=== PATIENT | male | born 1970 | race African-American/Black ===

== ENCOUNTER → 2016-06-03 | Outpatient (CLI) | payer MEDICARE, MEDICAID ==
[~2016-06-03] MED LIST: ALPR-557 PO; BACL10TA PO; BUTA1TAB46 PO; CARI350T PO; CEPH-507 PO; CETI10TA17; CLOT15CR5 TP; CYCL10TA9 PO; DIAZ5TAB3 PO; DICY20TA10 PO; DICY20TA57 PO; DIVA125T2 PO; DIVA250T4 PO; DULO20CA PO; FAMO-119 PO; HYDR RC; HYDR-1231 PO; HYDR-34 PO; HYDR-3720 PO; HYDR-3729 PO; HYDR118S10 PO; HYDR1CAP2 PO; HYOS0.1216 PO; LIDO15CR6 TP; METH4TAB PO; MONT10TA24; MSL400TEC PO; NAPR-243 PO; ONDA-42 SL; ONDA4TAB8 SL; OXYC-109 PO; OXYC-471 PO; OXYC1CAP3 PO; PRM25T PO; PROPANALOL PO; QUET300T2 PO; SLF500T PO; SULF1TAB38 PO; TAPE50TA PO; TPR100T PO; VALP250C3 PO; VERA240C2 PO; VERA240T98 PO
--- OUTSIDE RECORDS SUMMARY | 2016-06-03 10:56 | XMS REPORT | Continuity of Care Document ---
Author Author [facility] Organization [facility] Address Unknown Phone Unavailable Care Team Providers Care Wool Grader Name Role Phone Self, Referral PCP Unavailable Source Comments Some departments are not documenting in the electronic medical record. If you do not see the information that you expected, contact Release of Information in the Health Information Management department at [phone] for further assistance in locating additional records.[facility] Active Allergies and Adverse Reactions Allergen Noted Date Severity Reactions Comments Nsaids (Non-Steroidal 06/17/2011 HEADACHE, SEIZURES Anti-Inflammatory Drug) Toradol 06/17/2011 HEADACHE, SEIZURES Tramadol 06/17/2011 HEADACHE, SEIZURES Current Medications Prescription Sig. Disp. Refills Start End Date Status Date HYDROcodone/acetaminophen Take 1 Tab by mouth every Active (+) (LORTAB) 7.5/500 mg 4 hours as needed. tablet TOPIRAMATE (TOPAMAX PO) Take 100 mg by mouth Active twice daily. vitamins, multiple cap Take 1 Cap by mouth Active daily. Active Problems Problem Noted Date DNS (deviated nasal septum) 09/17/2012 Overview: Left obstructing 85% left nasal airway Nasal turbinate hypertrophy 08/02/2012 Cluster headache 06/25/2012 Overview: Several per day with left sided facial autonomic symptoms. L ast Assessment & Plan: Follow with Teresita Richardson for chronic headaches. CASSANDRA (obstructive sleep apnea) 06/24/2012 Overview: PSG AHI 23 (lateral AHI 15), Lsat 90% PLMI 10. CPAP 10 cm H20 resolved CASSANDRA. Symptomatic with apneic spells, EDS, cluster COATS. L ast Assessment & Plan: I discussed pathophysiology of CASSANDRA and its potential contribution to the patient's symptoms. He reports significant rhinitis and the rhinitis worsens when he has his cluster COATS (typical for this type of COATS). I referred him to ENT to see if there are any surgical approaches that may improve nasal patency and/or if he is an appropriate candidate for upper airway surgery for CASSANDRA. In the meantime, he responded superbly to CPAP on the PSG and said he felt great the next morning. He is getting CPAP set up today for a trial. I hope his headaches improve in frequency and severity, and that his sleep quality and EDS improve. Rhinitis 06/24/2012 Last Assessment & Plan: Refer to Dr. Tripp of ENT to see if there are surgical options for this patient's nasal congestion and possibly for CASSANDRA. 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
[2016-06-03 11:25] LABS: BASOPHILS % (AUTO) 0 % (0-10); EOSINOPHILS % (AUTO) 1 % (0-10); LYMPHOCYTES # (AUTO) 2.2 X 10^3 (1.0-4.0); LYMPHOCYTES % (AUTO) 51 % (12-44); MEAN CORPUSCULAR HEMOGLOBIN 30 PG (25-34); MEAN CORPUSCULAR HGB CONC 33 G/DL (32-36); MEAN CORPUSCULAR VOLUME 89 FL (80-99); MEAN PLATELET VOLUME 8.5 FL (7.4-10.4); MONOCYTES # (AUTO) 0.3 X 10^3 (0.0-1.0); MONOCYTES % (AUTO) 6 % (0-12); NEUTROPHILS # (AUTO) 1.7 X 10^3 (1.8-7.8); NEUTROPHILS % (AUTO) 42 % (42-75); PLATELET COUNT 331 10^3/uL (130-400); RED BLOOD COUNT 4.64 10^6/uL (4.35-5.85); RED CELL DISTRIBUTION WIDTH 13.5 % (10.0-14.5); WHITE BLOOD COUNT 4.2 10^3/uL (4.3-11.0)
[2016-06-03 11:45] LABS: ANION GAP 8 MMOL/L (5-14); BLOOD UREA NITROGEN 9 MG/DL (7-18); BUN/CREATININE RATIO 8; CARBON DIOXIDE 24 MMOL/L (21-32); CHLORIDE 106 MMOL/L (98-107); CREATININE SERUM 1.19 MG/DL (0.60-1.30); GFR ESTIMATED > 60; GLUCOSE 86 MG/DL (70-105); POTASSIUM 4.1 MMOL/L (3.6-5.0); SODIUM 138 MMOL/L (135-145)
[2016-06-04 00:03] LABS: CALCIUM IONIZED 1.26 mmol/L (1.16-1.32); CORRECTED IONIZED CALCIUM 1.22 mmol/L (1.16-1.32)
[2016-06-04 07:56] LABS: CALCIUM PH 7.34
== END ==
LOC: LAB 10:53
PROVIDERS: ATTEND Internal Medicine Critical Care Medicine
DX: C18.9 Malignant neoplasm of colon, unspecified (principal); R06.00 Dyspnea, unspecified; R05 Cough; G44.009 Cluster headache syndrome, unspecified, not intractable
CPT/HCPCS: 36415; 80048; 82164; 82330; 85025

== ENCOUNTER 2016-06-19 09:28 | Emergency (ER) | payer MEDICARE, MEDICAID ==
[~2016-06-19] VITALS: Ht 175.3 cm; Wt 68.5 kg
[~2016-06-19 09:28] MED LIST changes: -CETI10TA17; -CLOT15CR5 TP; -MONT10TA24
--- OUTSIDE RECORDS SUMMARY | 2016-06-19 09:36 | XMS REPORT | Continuity of Care Document ---
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
[2016-06-19] MEDS ORDERED: MONT10TA24 (09:52)
[2016-06-19] MEDS ORDERED: CETI10TA17 (09:52)
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
[2016-06-19] MEDS ORDERED: CLOT15CR5 TP (12:22)
[2016-06-19 12:23] VITALS: BP 116/70
--- NOTE | 2016-06-19 12:25 | Diagnostic Imaging Report ---
Three views of the right foot. INDICATION: Right foot pain. FINDINGS: There is no fracture, dislocation or radiopaque foreign body. Joint alignment is satisfactory. IMPRESSION: Unremarkable exam. Dictated by: Dictated on workstation # [id number]
== END 2016-06-19 12:25 | disposition home or self-care (01) ==
LOC: EDUNIT# 09:28 → ER 09:32
DX: B35.3 Tinea pedis (principal); I10 Essential (primary) hypertension; F17.210 Nicotine dependence, cigarettes, uncomplicated; Z85.07 Personal history of malignant neoplasm of pancreas
CPT/HCPCS: 73630; 99283

== ENCOUNTER → 2016-08-28 | Outpatient (CLI) | payer MEDICARE, MEDICAID ==
[~2016-08-28] MED LIST changes: +CETI10TA17; +CLOT15CR5 TP; +MONT10TA24
--- NOTE | 2016-08-28 15:19 | Diagnostic Imaging Report ---
Three views of the cervical spine. INDICATION: Fall. FINDINGS: There is straightening of the cervical spine. The vertebral body heights are preserved. There is mild disc height loss at C7-T1. There is anterior osteophyte formation at C5-C6. No significant posterior osteophytes are evident. There is suboptimal open-mouth odontoid view with no obvious abnormality. The prevertebral soft tissues appear unremarkable. IMPRESSION: Mild degenerative changes. Dictated by: Dictated on workstation # [id number]
== END ==
LOC: RAD 09:32
PROVIDERS: ATTEND Family Medicine
DX: M54.2 Cervicalgia (principal); W19.XXXA Unspecified fall, initial encounter; Y99.8 Other external cause status
CPT/HCPCS: 72040

== ENCOUNTER 2016-09-01 11:18 | Emergency (ER) | payer MEDICARE, MEDICAID ==
[~2016-09-01] VITALS: Ht 175.3 cm; Wt 69.4 kg
--- NOTE | 2016-09-01 12:57 | Diagnostic Imaging Report ---
Three views of the right foot. INDICATION: Right foot pain. FINDINGS: There is no fracture, dislocation, or radiopaque foreign body. Joint alignment is satisfactory. IMPRESSION: Unremarkable exam. Dictated by: Dictated on workstation # [id number]
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
[2016-09-01] MEDS ORDERED: oxyCODONE/APAP 5/325MG (PERCOCET 5) TABLET PO STA (13:23)
[2016-09-01 13:38] VITALS: BP 107/82
== END 2016-09-01 13:37 | disposition home or self-care (01) ==
LOC: EDUNIT# 11:18 → ER 11:20
DX: S93.601A Unspecified sprain of right foot, initial encounter (principal); S96.901A Unspecified injury of unspecified muscle and tendon at ankle and foot level, right foot, initial encounter; G40.909 Epilepsy, unspecified, not intractable, without status epilepticus; F17.210 Nicotine dependence, cigarettes, uncomplicated; Z85.038 Personal history of other malignant neoplasm of large intestine; X50.9XXA Other and unspecified overexertion or strenuous movements or postures, initial encounter; Y93.61 Activity, american tackle football; Y99.8 Other external cause status
CPT/HCPCS: 73630; 99285

== ENCOUNTER 2016-11-27 21:03 | Emergency (ER) | payer MEDICARE, MEDICAID ==
[~2016-11-27] VITALS: Ht 175.3 cm; Wt 68.0 kg
[2016-11-27] MEDS ORDERED: ORPHENADRINE 60 MG/2 ML (NORFLEX) AMP IM ONE (22:00)
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
[2016-11-27 22:55] VITALS: BP 121/85
[2016-11-27] MEDS ORDERED: HYDROcodone/APAP 5 MG/325 MG (LORTAB) TAB PO ONE (23:00)
--- NOTE | 2016-11-28 06:53 | Diagnostic Imaging Report ---
PROCEDURE: CT abdomen and pelvis without contrast. TECHNIQUE: Multiple contiguous axial images were obtained through the abdomen and pelvis without the use of intravenous contrast. INDICATION: Left-sided flank pain x2 days. COMPARISON: 03/12/2016. FINDINGS: Included views of the lung bases are clear. CT ABDOMEN: Moderate air and stool is noted scattered throughout the colon. Small bowel loops are nondistended. Patient appears to be status post partial right hemicolectomy. Appendix is therefore likely surgically absent. No renal or ureter calculi are seen on either side. Additionally, there is no hydronephrosis or other evidence of obstruction. No focal renal mass type lesions are identified on this noncontrast exam. The spleen, pancreas, adrenal glands, and liver have an unremarkable noncontrast CT appearance as well. There is no loculated fluid collection, free fluid, nor free air within the abdomen. No abnormal mesenteric or retroperitoneal adenopathy is seen. There is mild calcified aortic and arterial atherosclerosis. Bony structures show no acute abnormality. CT PELVIS: Urinary bladder is unopacified. No calculi are seen within a bladder. There is no loculated fluid collection, free fluid, nor free air. Bony structures show no acute abnormalities. IMPRESSION: 1. Moderate colonic air and stool. Please correlate for constipation. 2. No renal calculi or evidence of obstruction on either side. Dictated by: Dictated on workstation # [id number]
--- OUTSIDE RECORDS SUMMARY | 2016-12-04 04:22 | XMS REPORT | Clinical Summary ---
Author Author [facility] Organization [facility] Address Unknown Phone Unavailable Care Team Providers Care Bench Worker Name Role Phone PCP Unavailable Source Comments Some departments are not documenting in the electronic medical record. If you do not see the information that you expected, contact Release of Information in the Health Information Management department at [phone] for further assistance in locating additional records.[facility] Allergies Active Allergy Reactions Severity Noted Date Comments Nsaids (Non-Steroidal HEADACHE, SEIZURES 06/17/2011 Anti-Inflammatory Drug) Ketorolac Tromethamine HEADACHE, SEIZURES 06/17/2011 Tramadol HEADACHE, SEIZURES 06/17/2011 Current Medications Prescription Sig. Disp. Refills Start [...] CASSANDRA. Allergic rhinitis 06/26/2011 Food allergy 06/26/2011 Family History Relation Name Status Comments Brother Alive Brother Alive Brother Alive Brother Alive Daughter Alive Father Alive Maternal Grandfather Maternal Grandmother Mother Alive Paternal Grandfather Paternal Grandmother Alive Sister Alive Son Alive Son Alive Social History Tobacco Use Types Packs/Day Years Used Date Current Every Day Smoker Cigarettes 0.5 Smokeless Tobacco: Never Used Tobacco Cessation: Ready to Quit: Yes; Counseling Given: Yes Comments: Counseling given 5.9.13 Alcohol Use Drinks/Week oz/Week Comments Yes 1 Cans of 0.6 beer Sex Assigned at Date Recorded Not on file Last Filed Vital Signs Vital Sign Reading Time Taken Blood Pressure 125/82 10/05/2012 10:00 AM CDT Pulse 73 10/05/2012 10:00 AM CDT Temperature 36.8 C (98.2 F) 06/24/2012 8:52 AM 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
--- OUTSIDE RECORDS SUMMARY | 2016-12-04 04:25 | XMS REPORT | Continuity of Care Document ---
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 KNEE-CUR 11/27/2016 ADRIANNA SAUER MD Ot E000.8 OTHER EXTERNAL CAUSE STATUS 11/27/2016 ADRIANNA SAUER MD Ot E928.9 ACCIDENT NOS 11/27/2016 ADRIANNA SAUER MD Ot V72.84 EXAM PRE-OPERATIVE NOS 11/27/2016 PAUL GUAN DO Ot R05 COUGH 11/27/2016 PAUL GUAN DO Ot S69.91XA UNSP INJURY OF RIGHT WRIST, HAND AND FIN 11/27/2016 PAUL GUAN DO Ot S79.911A UNSPECIFIED INJURY OF RIGHT HIP, INITIAL 11/27/2016 PAUL GUAN DO Ot W19.XXXA UNSPECIFIED FALL, INITIAL ENCOUNTER 11/27/2016 PAUL GUAN DO Ot Y92.[address] IN UNSP NON-INSTITUT ( PRIVATE 11/27/2016 PAUL GUAN DO Ot Y99.8 OTHER EXTERNAL CAUSE STATUS 11/27/2016 PAUL GUAN DO Ot M25.551 PAIN IN RIGHT HIP 11/27/2016 ROGE GILLPAUL Ot M54.9 DORSALGIA, UNSPECIFIED 11/27/2016 IRIS WAGNER DO Ot C18.9 MALIGNANT NEOPLASM OF COLON, UNSPECIFIED 11/27/2016 IRIS WAGNER DO Ot 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, UNSPECIFIED, 11/27/2016 IRIS WAGNER DO Ot R05 COUGH 11/27/2016 IRIS WAGNER DO Ot R06.00 DYSPNEA, UNSPECIFIED 11/27/2016 LINDAKRISTOPHERADAMSPAUL Ot M54.2 CERVICALGIA 11/27/2016 LINDAKRISTOPHERADAMSPAUL Ot W19.XXXA UNSPECIFIED FALL, INITIAL ENCOUNTER 11/27/2016 ROGE PAUL Ot Y99.8 OTHER EXTERNAL CAUSE STATUS 11/29/2016 INOCENCIA COSTELLO APRN Ot F17.210 NICOTINE DEPENDENCE, CIGARETTES, UNCOMPL 11/29/2016 INOCENCIA COSTELLO APRN Ot G47.33 OBSTRUCTIVE SLEEP APNEA (ADULT) (PEDIATR 11/29/2016 INOCENCIA COSTELLO APRN Ot M54.5 LOW BACK PAIN 11/29/2016 INOCENCIA COSTELLO APRN Ot Z85.07 PERSONAL HISTORY OF MALIGNANT NEOPLASM O 11/29/2016 INOCENCIA COSTELLO APRN Ot Z90.49 ACQUIRED ABSENCE OF OTHER SPECIFIED PART 11/29/2016 INOCENCIA COSTELLO APRN Ot Z98.890 OTHER SPECIFIED POSTPROCEDURAL STATES Procedures Results Encounters ACCT No. Visit Date/Time Discharge Status Pt. Type Provider Facility Loc./Unit Complaint [id number] 07/06/2009 00:00:00 07/06/2009 23: 59:59 CLS Outpatient ARNOLD DE JESUS DO
== END 2016-11-27 22:55 | disposition home or self-care (01) ==
LOC: EDUNIT# 21:03 → ER 21:05
DX: M54.5 Low back pain (principal); G47.33 Obstructive sleep apnea (adult) (pediatric); F17.210 Nicotine dependence, cigarettes, uncomplicated; Z90.49 Acquired absence of other specified parts of digestive tract; Z85.07 Personal history of malignant neoplasm of pancreas; Z98.890 Other specified postprocedural states
CPT/HCPCS: 74176; 96372; 99284

== ENCOUNTER → 2017-03-09 | Outpatient (CLI) | payer MEDICARE, MEDICAID | LOC: LAB 09:39 | PROVIDERS: ATTEND Internal Medicine Gastroenterology | DX: R97.0 Elevated carcinoembryonic antigen [CEA] (principal); Z85.038 Personal history of other malignant neoplasm of large intestine | CPT/HCPCS: 36415; 82378 ==

== ENCOUNTER → 2017-08-03 | Outpatient (CLI) | payer MEDICARE, MEDICAID ==
[2017-08-03 16:30] LABS: HEMOGLOBIN 13.2 G/DL (13.3-17.7); MEAN PLATELET VOLUME 8.7 FL (7.4-10.4); RED BLOOD COUNT 4.42 10^6/uL (4.35-5.85); RED CELL DISTRIBUTION WIDTH 12.9 % (10.0-14.5); WHITE BLOOD COUNT 4.8 10^3/uL (4.3-11.0)
== END ==
LOC: LAB 16:04
PROVIDERS: ATTEND Family Medicine
DX: C18.9 Malignant neoplasm of colon, unspecified (principal); K92.1 Melena
CPT/HCPCS: 36415; 82378; 85027

== ENCOUNTER 2017-08-13 06:09 | Outpatient (CLI) | payer MEDICARE, MEDICAID ==
[~2017-08-13] VITALS: Ht 175.3 cm; Wt 66.2 kg
[2017-08-13] MEDS ORDERED: ALPR1TAB7 PO (15:45)
[2017-08-13] MEDS ORDERED: DIVA-21 PO (15:45)
[2017-08-13] MEDS ORDERED: D-ME118S7 PO (15:45)
[2017-08-13] MEDS ORDERED: VERA240T98 PO (15:45)
[2017-08-18] MEDS ORDERED: PANT40TA2 PO (14:53)
== END 2017-08-13 15:47 ==
LOC: PREOP 06:09
PROVIDERS: ATTEND Surgery
DX: Z01.818 Encounter for other preprocedural examination (principal); R19.5 Other fecal abnormalities; Z85.038 Personal history of other malignant neoplasm of large intestine

== ENCOUNTER 2018-10-10 19:28 | Emergency (ER) | payer MEDICARE, MEDICAID ==
[~2018-10-10] VITALS: Ht 175.3 cm; Wt 69.4 kg
[~2018-10-10 19:28] MED LIST changes: +ALPR1TAB7 PO; +D-ME118S7 PO; +DIVA-21 PO; +PANT40TA2 PO; +VERA240T14 PO
[2018-10-10] MEDS ORDERED: HYDROmorphone 2 MG/ML VIAL (DILAUDID) IM STA ×2 (21:00→22:41)
[2018-10-10] MEDS ORDERED: CYCLOBENZAPRINE 10 MG (FLEXERIL) TAB PO STA (21:00)
--- NOTE | 2018-10-10 21:03 | ED Back Pain ---
General Chief Complaint: Back Problems Stated Complaint: BACK PAIN Nursing Triage Note: Pt arrived by private vehicle with chief complaint of back pain. Pt was alert, oriented and ambulatory at arrival. Pt stated, he is unsure what he did to his back. Pain started after he mowed his grass and came in and took his boots off and had shooting pain up both sides of back. Pt stated his pain is 20/10 on both side mid back. Nursing Sepsis Screen: No Definite Risk Source of Information: Patient History of Present Illness Date Seen by Provider: Oct 10, 2018 Time Seen by Provider: 20:44 Initial Comments 48 yo M presenting with complaints of spine pain that has suddenly worsened today. 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 He also is moving and has been lifting at home. He mowed the lawn today and then was taking off his shoes this morning and had sudden sharp pain in his back. He has not been able to get pain under control. He denies any direct trauma to his back. He has had prior back pain and problems in the past. He denies having the pain is felt directly like this. He has no radiation into his legs but states that he does occasionally has some tingling in his feet. He has had no loss of bowel or bladder control. The pain feels like a sharp stabbing pain that radiates up and down along the sides of his spine. Allergies and Home Medications Allergies Coded Allergies: Fish Containing Products (Unverified Allergy, Mild, 10/22/08) NSAIDS (Non-Steroidal Anti-Inflamma (Verified Allergy, Unknown, 09/15/13) ketorolac (Verified Allergy, Unknown, 09/15/13) morphine (Unverified Adverse Reaction, Intermediate, itching, redness, 08/03/14) tramadol (Verified Adverse Reaction, Unknown, 09/15/13) Home Medications Alprazolam 1 Mg Tablet, 1 MG PO TID PRN for ANXIETY, (Reported) Baclofen 10 Mg Tablet, 10 MG PO TID PRN for MUSCLE SPASMS Prescribed by: CHAPINCITO HUSAIN on 10/10/18 1139 D-Methorphan Hb/Prometh HCl 118 Ml Syrup, 10 ML PO TID PRN for CONGESTION, (Reported) Divalproex Sodium 500 Mg Tab.er.24h, 500 MG PO BID, (Reported) Hydromorphone HCl 2 Mg Tablet, 2 MG PO TID PRN for PAIN-MODERATE TO SEVERE Back pain/Strain Prescribed by: CHAPINCITO HUSAIN on 10/10/182310 Pantoprazole Sodium 40 Mg Tablet.dr, 40 MG PO DAILY Prescribed by: KILO PARKER on 08/18/17 145 Prednisone 20 Mg Tab, 40 MG PO DAILY Prescribed by: CHAPINCITO HUSAIN on 10/10/182310 Verapamil HCl 240 Mg Tablet.er, 240 MG PO DAILY, (Reported) Patient Home Medication List Home Medication List Reviewed: Yes Review of Systems Constitutional: no symptoms reported EENTM: no symptoms reported Respiratory: no symptoms reported Cardiovascular: no symptoms reported Gastrointestinal: no symptoms reported Genitourinary: no symptoms reported Musculoskeletal: see HPI Skin: no symptoms reported Psychiatric/Neurological: Anxiety; Denies Headache, Denies Numbness, Denies Paresthesia Past Pihnsel-Drvehl-Nyyxka Hx Past Med/Social Hx: Reviewed Nursing Past Med/Soc Hx Patient Social History Alcohol Use: Denies Use Recreational Drug Use: No (marijuana for cancer treatment) Type Used: Cigarettes Former Smoker, Quit: Feb 09, 2016 2nd Hand Smoke Exposure: Yes Recent Foreign Travel: No Contact w/Someone Who Travel: No Recent Infectious Disease Expo: No Recent Hopitalizations: No Physical Abuse: No Sexual Abuse: No Mistreated: No Fear: No Immunizations Up To Date Tetanus Booster (TDap): Less than 5yrs Seasonal Allergies Seasonal Allergies: No Past Medical History Surgeries: Yes (COLON RESECTION, PART OF PANCREAS REMOVED, NASAL SEPTOPLASTY) Abdominal, Gallbladder, Orthopedic, Pancreatic, Testicular Respiratory: Yes (CPAP) Sleep Apnea Currently Using CPAP: No Cardiac: No (TAKES B/P MEDS FOR MIGRAINES) Hypertension Neurological: Yes Headaches /Migraines, Seizure Disorder Reproductive Disorders: No Sexually Transmitted Disease: No HIV/AIDS: No Gastrointestinal: Yes (COLON /PANCREAS CANCER, ILEUS, COLON RESECTION) Colitis, Polyps Musculoskeletal: Yes (CRUSH INJURY RIGHT HAND 2004) Degenerate Disk Disease, Arthritis, Chronic Back Pain, Fractures Endocrine: No Cancer: Yes Colon Psychosocial: Yes Anxiety Integumentary: No Blood Disorders: No Adverse Reaction/Blood Tranf: No Family Medical History Fibromyalgia 19 MOTHER No Pertinent Family Hx Physical Exam Vital Signs Vital Signs - First Documented 10/10/18 19:49 Temp 99.5 Pulse 81 Resp 22 B/P (MAP) 133/83 (100) Pulse Ox 100 O2 Delivery Room Air Capillary Refill : Less Than 3 Seconds Height, Weight, BMI Height: 5'9.00" Weight: 153lbs. 0oz. [id number]; 21.6 BMI Method:Stated General Appearance: WD/WN, Anxious, Moderate Distress HEENT: PERRL/EOMI, Normal ENT Inspection, Pharynx Normal Neck: Full Range of Motion, Normal Inspection, Non Tender, Supple Cardiovascular: Regular Rate, Rhythm, Normal Peripheral Pulses Respiratory: Chest Non Tender, Lungs Clear, Normal Breath Sounds, No Accessory Muscle Use, No Respiratory Distress Gastrointestinal: Normal Bowel Sounds, No Pulsatile Mass, Soft Back: No CVA Tenderness, Decreased Range of Motion, Muscle Spasm, Vertebral Tenderness (thoracic and lumbar spine) Extremity: Normal Capillary Refill, Non Tender, No Calf Tenderness, No Pedal E osiris, Other (positive bilateral straight leg raise that 5-10) Neurologic/Psychiatric: Alert, Oriented x3, No Motor/Sensory Deficits, dial printer II- XII Norm as Tested, Other (patient is very anxious. He has 2 for bilateral patellar and Achilles reflexes) Skin: Normal Color, Warm/Dry Progress/Results/Core Measures Results/Orders My Orders Orders - CHAPINCITO HUSAIN MD Hydromorphone Injection (Dilaudid Inject (10/10/18 21:00) Cyclobenzaprine Tablet (Flexeril Tablet) (10/10/18 21:00) Ct Thoracic/Lumbar Spine Wo (10/10/18 21:31) Hydromorphone Injection (Dilaudid Inject (10/10/18 22:41) Dexamethasone Injection (Decadron Inject (10/10/18 22:41) Rx-Ondansetron Po (Rx-Zofran Po) (10/10/18 23:30) Rx-Hydrocodone/Apap 5-325 Mg (Rx-Vicodin (10/10/18 23:30) Medications Given in ED Current Medications Medications Dose Ordered Sig/Sariah Route Start Time Stop Time Status Last Admin Dose Admin Acetaminophen/ Hydrocodone Bitart 1 ea Q6H PRN PO 10/10/18 23:30 10/10/18 23:33 DC 10/10/18 23:31 1 EA Ondansetron HCl 4 mg Q6HR PRN PO 10/10/18 23:30 6/2/19 23:33 DC 10/10/18 23:31 4 MG Vital Signs/I&O 10/10/18 10/10/18 19:49 23:16 Temp 99.5 99.5 Pulse 81 81 Resp 22 22 B/P (MAP) 133/83 (100) 133/83 (100) Pulse Ox 100 100 O2 Delivery Room Air Room Air Blood Pressure Mean: 100 Progress Progress Note #1: Progress Note With his tight spasms of the paraspinal muscles we will try giving Flexeril as it was only muscle relaxer stocked in medicine supply here. We will try Dilaudid since he cannot tolerate other pain medicines. Obtain a CT scan of the thoracic and lumbar spine once the medication treatments have been administered. Progress Note #2: Progress Note On recheck he is improved after this treatment. Reviewed with him that the CT scans did not show any acute compression fracture or bony abnormality other than mild arthritis. Will repeat a dose of Dilaudid as well as a steroid for anti- inflammatory effect. Discharge on baclofen for muscle relaxer, prednisone for anti-inflammatory, and a few Dilaudid until he could check back with his primary. Diagnostic Imaging Diagonstic Imaging: CT Plain Films/CT/US/NM/MRI: other (thoracic and lumbar spine) Comments No acute findings in the thoracic spine. No fracture or malalignment lumbar spine. Mild degenerative changes most pronounced at L4 5 where there is moderate right foraminal stenosis. No significant spinal canal stenosis. Read by radiologist Dr. Vlad Houston MD at [phone] and faxed at [phone] Reviewed: Reviewed Night [facility] Study Departure Impression Primary Impression: Thoracic back sprain Qualified Codes: S23.9XXA - Sprain of unspecified parts of thorax, initial encounter Additional Impressions: Lumbar back sprain Qualified Codes: S33.5XXA - Sprain of ligaments of lumbar spine, initial encounter Paraspinal muscle spasm Disposition: 01 HOME, SELF-CARE Condition: Stable Departure-Patient Inst. Decision time for Depature: 23:07 Referrals: PAUL GUAN DO (PCP/Family) Primary Care Physician Patient Instructions: Lumbar Muscle Strain (DC), Muscle Spasms (DC), Upper Back Pain (DC) Add. Discharge Instructions: Follow up with Dr. Guan this week about your back spasms and pain. Limit your lifting this week to let your back heal and rest Alternate ice and heat to your back to help with pain and inflammation Use the Steroid to help with inflammation. Baclofen for muscle spasms. Dilaudid for severe pain All discharge instructions reviewed with patient and/or family. Voiced understanding. Scripts Hydromorphone HCl (Dilaudid) 2 Mg Tablet 2 MG PO TID PRN for PAIN-MODERATE TO SEVERE for 5 Days, #15 TAB 0 Refills Back pain/Strain Prov: CHAPINCITO HUSAIN MD 10/10/18 Prednisone (Prednisone) 20 Mg Tab 40 MG PO DAILY for 5 Days, #10 TAB 0 Refills Prov: CHAPINCITO HUSAIN MD 10/10/18 Baclofen (Baclofen) 10 Mg Tablet 10 MG PO TID PRN for MUSCLE SPASMS for 10 Days, #30 TAB 0 Refills Prov: CHAPINCITO HUSAIN MD 10/10/18 Work/School Note: Work Release Form Date Seen in the Emergency Department: Oct 10, 2018 Return to Work: Oct 12, 2018 Restrictions: No Restrictions CHAPINCITO HUSAIN MD Oct 10, 2018 21:03
[2018-10-10] MEDS ORDERED: DEXAMETHASONE 10 MG/ML (DECADRON) 1 ML VIAL IM STA (22:41)
[2018-10-10] MEDS ORDERED: BACL10TA PO (23:11)
[2018-10-10] MEDS ORDERED: PRD20T PO (23:11)
[2018-10-10] MEDS ORDERED: HYDR2TAB30 PO (23:11)
[2018-10-10 23:16] VITALS: BP 133/83
[2018-10-10] MEDS ORDERED: RX-ONDANSETRON 4 MG ODT (ZOFRAN) PPK #4 PO PRN (23:30)
[2018-10-10] MEDS ORDERED: RX-HYDROCODONE/APAP 5/325 MG #4 TAB PK PO PRN (23:30)
--- NOTE | 2018-10-11 05:49 | Diagnostic Imaging Report ---
PROCEDURE: CT thoracic and lumbar spine without contrast. TECHNIQUE: Multiple contiguous axial images were obtained through the thoracic and lumbar spine without the use of intravenous contrast. Sagittal and coronal reformations were then performed. INDICATION: Back pain COMPARISON: 03/12/2016 FINDINGS: Minimal S-shaped curvature of the thoracolumbar spine. No significant anterolisthesis or retrolisthesis. 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 Vertebral body heights are well-maintained. No severe disc space height loss. No acute fracture or dislocation. No destructive osseous process. Scattered facet joint degenerative changes. No high-grade osseous central canal stenosis. Multilevel neuroforaminal stenosis, including at least mild bilateral neuroforaminal stenosis at L4/L5. Calcified granuloma within the left lower lobe. Cholecystectomy. Postsurgical changes within the right abdomen. Scattered vascular calcifications. IMPRESSION: No acute osseous abnormality with mild curvature of the spine and mild multilevel degenerative changes. Agree with preliminary interpretation. Dictated by: Dictated on workstation # [id number]
== END 2018-10-10 23:32 | disposition home or self-care (01) ==
LOC: EDUNIT# 19:28 → ER FS 19:29
DX: S23.9XXA Sprain of unspecified parts of thorax, initial encounter (principal); S33.5XXA Sprain of ligaments of lumbar spine, initial encounter; M62.838 Other muscle spasm; G47.30 Sleep apnea, unspecified; I10 Essential (primary) hypertension; G43.909 Migraine, unspecified, not intractable, without status migrainosus; G40.909 Epilepsy, unspecified, not intractable, without status epilepticus; F41.9 Anxiety disorder, unspecified; Z85.038 Personal history of other malignant neoplasm of large intestine; Z85.07 Personal history of malignant neoplasm of pancreas; Z87.19 Personal history of other diseases of the digestive system; Z86.010 Personal history of colon polyps; Z88.6 Allergy status to analgesic agent; Z88.4 Allergy status to anesthetic agent; Z88.5 Allergy status to narcotic agent; Z79.52 Long term (current) use of systemic steroids; Z87.891 Personal history of nicotine dependence; Z90.49 Acquired absence of other specified parts of digestive tract; X58.XXXA Exposure to other specified factors, initial encounter
CPT/HCPCS: 72128; 72131; 96372

== ENCOUNTER 2018-10-25 16:12 | Emergency (ER) | payer MEDICARE, MEDICAID ==
[~2018-10-25] VITALS: Ht 175.3 cm; Wt 68.0 kg
[~2018-10-25 16:12] MED LIST changes: +HYDR2TAB30 PO; +PRD20T PO
--- OUTSIDE RECORDS SUMMARY | 2018-10-25 16:17 | XMS REPORT | Clinical Summary ---
Author Author [facility] Organization [facility] Address Unknown Phone Unavailable Care Team Providers Care Customer Relations Consultant Name Role Phone Self, Referral PCP Unavailable Shira Fontana MD Unavailable Teresita Aguilar [facility] Unavailable Mercedes Julio MD Unavailable Prieto Tripp MD Unavailable Luann Jane MD Unavailable Unavailable Camilo Son MD Unavailable Source Comments Some departments are not documenting in the electronic medical record. If you d o not see the information that you expected, contact Release of Information in [facility] Information Management department at [phone] for further assistan ce in locating additional records.[facility] Allergies Comments Active Allergy Reactions Severity Noted Date Nsaids (Non-Steroidal HEADACHE, 06/17/2011 Anti-Inflammatory Drug) SEIZURES Ketorolac Tromethamine HEADACHE, 06/17/2011 SEIZURES Tramadol HEADACHE, 06/17/2011 SEIZURES Medications End Date Status Medication Sig Dispensed Refills Start Date Active HYDROcodone/acetaminophen Take 1 Tab by 0 (+) (LORTAB) 7.5/500 mg mouth every 4 tablet hours as needed. Active TOPIRAMATE (TOPAMAX PO) Take 100 mg 0 by mouth twice daily. Active vitamins, multiple cap Take 1 Cap by 0 mouth daily. Active Problems Problem Noted Date DNS [...] Alive Son Alive Son Alive Social History Date Tobacco Use Types Packs/Day Years Used Current Every Day Smoker Cigarettes 0.5 Smokeless Tobacco: Never Used Tobacco Cessation: Ready to Quit: Yes; Counseling Given: Yes Comments: Counseling given 5.9.13 Drinks/Week oz/Week Comments Alcohol Use 1 Cans of beer 0.6 Yes Sex Assigned at Date Recorded Not on file Industry Job Start Date Occupation Not on file Not on file Not on file Travel End Travel History Travel Start No recent travel history available. Last Filed Vital Signs Reading Time Taken Comments Vital Sign 125/82 10/05/2012 10:00 AM CDT Blood Pressure 73 10/05/2012 10:00 AM CDT Pulse 36.8 C (98.2 F) 06/24/2012 8:52 AM AIR SAMPLER Temperature - - Respiratory Rate - - Oxygen Saturation - - Inhaled Oxygen Concentration 69.9 kg (154 lb 3.2 oz) 10/05/2012 10:00 AM CDT Weight 172.7 cm (5' 8") 10/05/2012 10:00 AM CDT Height 23.45 10/05/2012 10:00 AM CDT Body Mass Index Plan of Treatment Health Maintenance Due Date Last Done Comments PHYSICAL (COMPREHENSIVE) 08/29/1979 EXAM HIV SCREENING 08/29/1987 DTAP/TDAP VACCINES (1 - 1990 Tdap) INFLUENZA VACCINE 02/08/2019 Results Not on filefrom Last 3 Months
--- OUTSIDE RECORDS SUMMARY | 2018-10-25 16:17 | XMS REPORT | Encounter Summary ---
Author Author [facility] Organization [facility] Address Unknown Phone Unavailable Care Team Providers Care Copy Operator Name Role Phone Self, Referral PCP Unavailable Shira Fontana MD Unavailable Teresita [facility]ilar [facility] Unavailable Mercedes Julio MD Unavailable Prieto Tripp MD Unavailable Reason for Visit * Reason Comments Sleep Problem Nasal Congestion Encounter Details Care Team Description Date Type Department Prieto Tripp MD [address] [place] [address] CASSANDRA (obstructive sleep apnea); Rhinitis; Nasal turbinate hypertrophy 08/02/2012 Office Visit [facility] [address] [place] [address] Social History Date Tobacco Use Types Packs/Day Years Used Current Every Day Smoker Cigarettes 0.5 Smokeless Tobacco: Never Used Drinks/Week oz/Week Comments Alcohol Use No Sex Assigned at Date Recorded Not on file Industry Job Start Date Occupation Not on file Not on file Not on file Travel End Travel History Travel Start No recent travel history available. documented as of this encounter Last Filed Vital Signs Reading Time Taken Comments Vital Sign 113/81 08/02/2012 9:15 AM CDT Blood Pressure 73 08/02/2012 9:15 AM CDT Pulse - - Temperature - - Respiratory Rate - - Oxygen Saturation - - Inhaled Oxygen Concentration 71.5 kg (157 lb 9.6 oz) 08/02/2012 9:15 AM CDT Weight 172.7 cm (5' 8") 08/02/2012 9:15 AM CDT Height 23.96 08/02/2012 9:15 AM CDT Body Mass Index documented in this encounter Progress Notes * Prieto Tripp MD - 08/02/2012 9:08 AM CDT Subjective: Jason Mason is a 41 y.o. male. History of Present Illness Referred by Dr Stacy Julio for evaluation and management of bilateral nasal congestion and poor CPAP tolerance due to "nasal pressure symptoms and cluster h eadaches related to that pressure". No history nasal fracture, trauma or prior surgery. Feels much more rested when wearing CPAP. Only has seizures when "matias amelia triggers" but not tolerant of dilantin and topamax with minimal benefit. Smokes 5+ cigarettes per day. Disabled due to epilepsy. Past Medical History Diagnosis Date Seizure disorder Migraines Past Surgical History Procedure Date Carpal tunnel release Hx hand surgery Pt states he had 13 surgeries for a crush injury he had. History reviewed. No pertinent family history. History Smoking status Current Everyday Smoker -- 0.5 packs/day Types: Cigarettes Smokeless tobacco Never Used History Drug Use Not on file PMH, SH, FH, allergies and medications above have been reviewed. Review of Systems Constitutional: Positive for diaphoresis. Negative for fever, chills, activity c hange, appetite change, fatigue and unexpected weight change. HENT: Positive for neck pain, neck stiffness, voice change and sinus pressure. N egative for hearing loss, ear pain, nosebleeds, congestion, sore throat, facial swelling, rhinorrhea, sneezing, drooling, mouth sores, trouble swallowing, denta l problem, postnasal drip, tinnitus and ear discharge. Eyes: Positive for photophobia and pain. Negative for discharge, redness, itchin g and visual disturbance. Respiratory: Positive for apnea, cough and shortness of breath. Negative for cho higinio, chest tightness, wheezing and stridor. Cardiovascular: Positive for chest pain. Negative for palpitations and leg swell ing. Gastrointestinal: Positive for nausea and vomiting. Negative for abdominal pain, diarrhea, constipation, blood in stool, abdominal distention, anal bleeding and rectal pain. Genitourinary: Negative. Musculoskeletal: Positive for back pain and arthralgias. Negative for myalgias, joint swelling and gait problem. Skin: Negative. Neurological: Positive for dizziness, seizures, light-headedness and headaches. Negative for tremors, syncope, facial asymmetry, speech difficulty, weakness and numbness. Hematological: Negative. Psychiatric/Behavioral: Negative. Objective: verapamil SR (VERELAN) 120 mg capsule Take 1 Cap by mouth daily. SUMAtriptan(+) (IMITREX) 5 mg/1 mL [facility] One spray in each nostril at the ons et of migraine. May repeat one spray in each nostril in 2 hours if not improved. NTE 40 mg per day or 3 migraines per week TOPIRAMATE (TOPAMAX PO) Take 100 mg by mouth twice daily. HYDROcodone/acetaminophen(+) (LORTAB) 7.5/500 mg tablet Take 1 Tab by mouth every 4 hours as needed. Filed Vitals: 08/02/12 0915 BP: 113/81 Pulse: 73 Height: 172.7 cm (68") Weight: 71.487 kg (157 lb 9.6 oz) Body mass index is 23.96 kg/(m^2). Physical Exam General appearance: well developed, well nourished, no acute distress Communication ability: communicates by voice, normal quality Inspection: normocephalic, no scars, lesions, or masses External ear: normal, no lesions or deformities Otoscopic: canals clear, tympanic membranes intact and normal, no drainage or in fection Hearing: grossly intact. External nose: normal, no lesions or deformities Palp/percussion: no sinus tenderness Nasal: mucosa normal, septum normal anteriorly, and turbinates 3+ Lips/teeth/gums: normal dentition, no gingival inflammation, no labial lesions. Angle class I occlusion. Oropharynx: tongue normal, posterior pharynx without erythema or exudate. 1+ cry ptic tonsils. Arreola class III tongue position. Long broad uvula. Pharynx wall/sinus: no saliva pooling, asymmetry, or lesions Neck: no lymphadenopathy, no masses, trachea midline Thyroid: no nodules, masses, tenderness, or enlargement AHI 23, lateral 15. LSAT 90%. CPAP 10 cm H20 cures. Differential Diagnosis: Deviated nasal septum, lateral pharyngeal wall redundan cy, uvular hypertrophy, adenoid hypertrophy, allergic rhinitis, sleep apnea, tur binate hypertrophy Assessment and Plan: Problem Nasal Turbinate Hypertrophy CASSANDRA, moderate Afrin trial to attempt CPAP tolerance. If benefit schedule SMRT and possible se ptoplasty (if posterior deviation on endoscopy)> IF no benefit and unable to tolerate CPAP, return for [place] and OP/BOT surgica l discussion. documented in this encounter Plan of Treatment Not on filedocumented as of this encounter Visit Diagnoses Diagnosis CASSANDRA (obstructive sleep apnea) Obstructive sleep apnea (adult) (pediatric) Rhinitis Chronic rhinitis Nasal turbinate hypertrophy Hypertrophy of nasal turbinates documented in this encounter
--- OUTSIDE RECORDS SUMMARY | 2018-10-25 16:17 | XMS REPORT | Clinical Summary ---
Author Author [facility] Organization [facility] Address Unknown Phone Unavailable Care Team Providers Care Delivery Engineer Name Role Phone Jv Wilkes MD PCP Allergies Active Allergy Reactions Severity Noted Date Comments Morphine Rash Low 03/15/2015 Nsaids (Non-Steroidal Seizures High 03/15/2015 Anti-Inflammatory Drug) Ketorolac Seizures High 03/15/2015 Tramadol Seizures High 03/15/2015 Current Medications Prescription Sig. Disp. Refills Start End Date Status Date ondansetron (ZOFRAN-ODT) 0 02/25/20 Active 4 MG disintegrating 15 tablet albuterol (PROAIR HFA) 90 Inhale 2 puffs every 6 Active mcg/actuation inhaler (six) hours as needed for wheezing. valproic acid (DEPAKENE) Take by mouth. Active 250 mg/5 mL (5 mL) syrup verapamil (CALAN-SR) 240 Take 240 mg by mouth Active MG CR tablet nightly. ALPRAZolam (XANAX) 1 MG Take 1 mg by mouth 2 Active tablet (two) times a day. omeprazole (PRILOSEC) 40 Take one capsule (40 mg 30 capsule 11 03/15/20 Active MG capsuleIndications: total) by mouth daily. 15 Chronic cough carisoprodol (SOMA) 350 Take 350 mg by mouth as Active MG tablet needed for muscle spasms. DULoxetine (CYMBALTA) 20 Take 20 mg by mouth Active MG capsule daily. carBAMazepine (TEGRETOL) Chew one tablet (100 mg 60 tablet 2 03/27/20 Active 100 mg chewable total) 2 (two) times a 15 tabletIndications: day. Trigeminal neuralgia, CASSANDRA on CPAP, Seizures, generalized convulsive (HCC) promethazine-codeine Take 5 mL by mouth every 118 mL 0 04/13/20 Active (PHENERGAN WITH CODEINE) 4 (four) hours as needed 15 6.25-10 mg/5 mL for cough. syrupIndications: Chronic cough Active Problems Problem Noted Date Trigeminal neuralgia 03/27/2015 CASSANDRA on CPAP 03/27/2015 Seizures, generalized convulsive (HCC) 03/27/2015 Chronic cough 03/15/2015 Overview: Having some possible GERD symptoms, definite nasal drainage, still smoking as well, PFTs negative for obstruction, no KAMINI inhibitors Trying omeprazole and sinus rinsing, working on quitting smoking Tobacco use 03/15/2015 Sinus congestion 03/15/2015 Family History Medical History Relation Name Comments Lung cancer Father Neuropathy Sister Asthma Relation Name Status Comments Father Mother Alive Sister Alive Social History Tobacco Use Types Packs/Day Years Used Date Current Every Day Smoker Cigarettes 0.5 20 Smokeless Tobacco: Current User Alcohol Use Drinks/Week oz/Week Comments Yes 0 Standard 0.0 drinks or equivalent Sex Assigned at Date Recorded Not on file Last Filed Vital Signs Vital Sign Reading Time Taken Blood Pressure 130/75 04/13/2015 10:04 AM MANAGER RETENTION Pulse 85 04/13/2015 10:04 AM MANAGER RETENTION Temperature 36.8 C (98.2 F) 04/13/2015 10:04 AM MANAGER RETENTION Respiratory Rate 14 04/13/2015 10:04 AM MANAGER RETENTION Oxygen Saturation 99% 04/13/2015 10:04 AM MANAGER RETENTION Inhaled Oxygen - - Concentration Weight 63.4 kg (139 lb 11.2 oz) 04/13/2015 10:04 AM MANAGER RETENTION Height 176.5 cm (5' 9.5") 03/27/2015 12:20 PM MANAGER RETENTION Body Mass Index 20.33 04/13/2015 10:04 AM MANAGER RETENTION Plan of Treatment Health Maintenance Due Date Last Done Comments Td # 1972 Tobacco Cessation 1972 Counseling # Influenza Vaccine (Season 03/11/2019 Ended) Results Not on filefrom Last 3 Months
--- OUTSIDE RECORDS SUMMARY | 2018-10-25 16:17 | XMS REPORT | Encounter Summary ---
Author Author [facility] Organization [facility] Address Unknown Phone Unavailable Care Team Providers Care Commissary Agent Name Role Phone Self, Referral PCP Unavailable Shira Fontana MD Unavailable [facility] Unavailable Mercedes Julio MD Unavailable Prieto Tripp MD Unavailable Reason for Visit * Reason Comments Migraine Encounter Details Care Team Description Date Type Department Prieto Tripp MD [address] [place] [address] CASSANDRA (obstructive sleep apnea); Nasal turbinate hypertrophy; DNS (deviated nasal septum); Chronic rhinitis 09/16/2012 Office Visit [facility] [address] [place] [address] Social History Date Tobacco Use Types Packs/Day Years Used Current Every Day Smoker Cigarettes 0.5 Smokeless Tobacco: Never Used Tobacco Cessation: Ready to Quit: Yes; Counseling Given: Yes Comments: Counseling given 5.9.13 Drinks/Week oz/Week Comments Alcohol Use No Sex Assigned at Date Recorded Not on file Industry Job Start Date Occupation Not on file Not on file Not on file Travel End Travel History Travel Start No recent travel history available. documented as of this encounter Last Filed Vital Signs Reading Time Taken Comments Vital Sign 108/66 09/16/2012 2:32 PM CDT Blood Pressure 73 09/16/2012 2:32 PM CDT Pulse - - Temperature - - Respiratory Rate - - Oxygen Saturation - - Inhaled Oxygen Concentration 70.6 kg (155 lb 9.6 oz) 09/16/2012 2:32 PM CDT Weight 172.7 cm (5' 8") 09/16/2012 2:32 PM CDT Height 23.66 09/16/2012 2:32 PM CDT Body Mass Index documented in this encounter Progress Notes * Prieto Tripp MD - 09/16/2012 2:34 PM CDT Subjective: Jason Mason is a 42 y.o. male. History of Present Illness Cluster headache today on the left side. No discolored nasal drainage or fever. Tolerating CPAP now that switched to nasal canula type mask. Review of Systems Constitutional: Positive for chills, diaphoresis and fatigue. HENT: Positive for ear pain, congestion, sore throat, sneezing, trouble swallowi ng, neck pain, neck stiffness and sinus pressure. Eyes: Positive for photophobia, pain and visual disturbance. Respiratory: Positive for apnea, cough and shortness of breath. Cardiovascular: Negative. Gastrointestinal: Negative. Genitourinary: Negative. Musculoskeletal: Positive for back pain and arthralgias. Skin: Negative. Neurological: Positive for dizziness, tremors, seizures, weakness, light-headedn ess and headaches. Hematological: Negative. Psychiatric/Behavioral: Positive for confusion, disturbed wake/sleep cycle, decr eased concentration and agitation. Objective: vitamins, multiple cap Take 1 Cap by mouth daily. verapamil SR (VERELAN) 120 mg capsule Take 1 Cap by mouth daily. SUMAtriptan(+) (IMITREX) 5 mg/1 mL [place] One spray in each nostril at the ons et of migraine. May repeat one spray in each nostril in 2 hours if not improved. NTE 40 mg per day or 3 migraines per week TOPIRAMATE (TOPAMAX PO) Take 100 mg by mouth twice daily. HYDROcodone/acetaminophen(+) (LORTAB) 7.5/500 mg tablet Take 1 Tab by mouth every 4 hours as needed. Filed Vitals: 09/16/12 1432 BP: 108/66 Pulse: 73 Height: 172.7 cm (68") Weight: 70.58 kg (155 lb 9.6 oz) Body mass index is 23.66 kg/(m^2). Physical Exam General appearance: well developed, [...] no sinus tenderness Nasal: mucosa normal, septum deviated left off maxillary crest obstr 80% nasal a irway, and turbinates 3+ Lips/teeth/gums: normal dentition, no gingival inflammation, no labial lesions Oropharynx: tongue normal, posterior pharynx without erythema or exudate. 2+ cry ptic tonsils. Pharynx wall/sinus: no saliva pooling, asymmetry, or lesions Neck: no lymphadenopathy, no masses, trachea midline Thyroid: no nodules, masses, tenderness, or enlargement After obtaining verbal informed consent, I sprayed down the nasal cavity with ne osynephrine and 4% lidocaine. After adequate time for decongestion and anesthes ia a rigid 30 degree nasal endoscope was inserted into the right and left nasal cavity. The infundibular area on the right showed clear, no pus or polyps and t he posterior sphenoethmoidal recess showed clear. The left side was congestion and septal deviation and cannot visualize, respectively. Assessment and Plan: Problem Dns (Deviated Nasal Septum) Left obstructing 85% left nasal airway Risks, benefits and alternatives to septoplasty and SMR inferior turbinates disc ussed. The patient understands risks to include but not be limited to persisten t nasal obstruction, persistent CASSANDRA (expected, if applicable), septal perforatio n, nasal dryness, decreased sense of smell, and epistaxis (requiring return to t he OR or nasal packing). Splints will likely be in place for one week. All que stions were answered to his satisfaction and verbal informed consent was nader d. He will call if decongestant spray and lidocaine clear his cluster COATS, september b enefit from headache relief and airway nasal obstruction with surgery (but would still require CPAP post op). documented in this encounter Plan of Treatment Not on filedocumented as of this encounter Visit Diagnoses Diagnosis CASSANDRA (obstructive sleep apnea) Obstructive sleep apnea (adult) (pediatric) Nasal turbinate hypertrophy Hypertrophy of nasal turbinates DNS (deviated nasal septum) Deviated nasal septum Chronic rhinitis documented in this encounter
--- OUTSIDE RECORDS SUMMARY | 2018-10-25 16:17 | XMS REPORT | Encounter Summary ---
Author Author [facility] Organization [facility] Address Unknown Phone Unavailable Care Team Providers Care Rn Family Name Role Phone Self, Referral PCP Unavailable Shira Fontana MD Unavailable [facility] Unavailable Mercedes Julio MD Unavailable Reason for Referral * Consult, Test & Treat Referred By Contact Referred To Contact Status Reason Specialty Diagnoses / Procedures Mercedes Julio MD [address] [address] Closed Specialty Services Otolaryngology Diagnoses Required STEVAN (obstructive sleep apnea) Scheduling Instructions For scheduling, please fax requisition to the Otolaryngology (ENT) Department net front end developer at . Reason for Visit * Reason Comments Other f/u sleep study Encounter Details Care Team Description Date Type Department Mercedes Julio MD [address] [address] STEVAN (obstructive sleep apnea) (Primary Dx); Allergic rhinitis; Rhinitis 06/24/2012 [facility] [address] [place] [address] Social History Date Tobacco Use Types Packs/Day Years Used Current Every Day Smoker Cigarettes 0.5 Smokeless Tobacco: Never Used Drinks/Week oz/Week Comments Alcohol Use Not Asked Sex Assigned at Date Recorded Not on file Industry Job Start Date Occupation Not on file Not on file Not on file Travel End Travel History Travel Start No recent travel history available. documented as of this encounter Last Filed Vital Signs Reading Time Taken Comments Vital Sign 118/73 06/24/2012 8:52 AM WEATHER ALGORITHM SCIENTIST Blood Pressure 73 06/24/2012 8:52 AM WEATHER ALGORITHM SCIENTIST Pulse 36.8 C (98.2 F) 06/24/2012 8:52 AM WEATHER ALGORITHM SCIENTIST Temperature - - Respiratory Rate - - Oxygen Saturation - - Inhaled Oxygen Concentration 71.2 kg (157 lb) 06/24/2012 8:52 AM WEATHER ALGORITHM SCIENTIST Weight 172.7 cm (5' 8") 06/24/2012 8:52 AM WEATHER ALGORITHM SCIENTIST Height 23.87 06/24/2012 8:52 AM WEATHER ALGORITHM SCIENTIST Body Mass Index documented in this encounter Progress Notes * Stacy Julio MD - 06/24/2012 9:03 AM WEATHER ALGORITHM SCIENTIST Subjective: History of Present Illness Jason Mason is a 41 y.o. male. Wakes self up snoring. Woke up choking. Been told by stopped breathing. Migraines are severe. Can wake up with them but no set pattern. Cigarettes-5 cigs per day. Sinus congestion. Review of Systems Objective: verapamil SR (VERELAN) 120 mg capsule Take 1 Cap by mouth daily. SUMAtriptan(+) (IMITREX) 5 mg/1 mL [place] One spray in each nostril at the ons et of migraine. May repeat one spray in each nostril in 2 hours if not improved. NTE 40 mg per day or 3 migraines per week TOPIRAMATE (TOPAMAX PO) Take 100 mg by mouth twice daily. HYDROcodone/acetaminophen(+) (LORTAB) 7.5/500 mg tablet Take 1 Tab by mouth every 4 hours as needed. Filed Vitals: 06/24/12 0852 BP: 118/73 Pulse: 73 Temp: 36.8 C (98.2 F) TempSrc: Oral Height: 172.7 cm (68") Weight: 71.215 kg (157 lb) Body mass index is 23.87 kg/(m^2). Physical Exam HENT: Mouth/Throat: No oropharyngeal exudate. Moderate-severe nasal congestion bilatearlly. Some oropharyngeal crowding Neck: No thyromegaly present. 15 05/12" neck Cardiovascular: Normal rate and regular rhythm. Pulmonary/Chest: Effort normal and breath sounds normal. Lymphadenopathy: He has no cervical adenopathy. Neurological: He is alert. Skin: Skin is dry. No erythema. Psychiatric: He has a normal mood and affect. Assessment and Plan: Problem Cluster Headache Several per day with left sided facial autonomic symptoms. Stevan (Obstructive Sleep Apnea) PSG AHI 23 (lateral AHI 15), Lsat 90% PLMI 10. CPAP 10 cm H20 resolved STEVAN. Symptomatic with apneic spells, EDS, cluster COATS. Rhinitis Allergic Rhinitis STEVAN (obstructive sleep apnea) I discussed pathophysiology of STEVAN and its potential contribution to the patient 's symptoms. He reports significant rhinitis and the rhinitis worsens when he h as his cluster COATS (typical for this type of COATS). I referred him to ENT to see i f there are any surgical approaches that may improve nasal patency and/or if he is an appropriate candidate for upper airway surgery for STEVAN. In the meantime, he responded superbly to CPAP on the PSG and said he felt great the next morning . He is getting CPAP set up today for a trial. I hope his headaches improve in frequency and severity, and that his sleep quality and EDS improve. Cluster headache Follow with Teresita Gasparmandeep for chronic headaches. Rhinitis Refer to Dr. Tripp of ENT to see if there are surgical options for this patient 's nasal congestion and possibly for STEVAN. I spent 30 mintues with this patient discussing PSG results, pathophysiology of STEVAN and treatment options. HER ALGORITHM SCIENTIST documented in this encounter Plan of Treatment Order Schedule Name Type Priority Associated Diagnoses Ordered: 06/24/2012 AMB REFERRAL TO ENT Outpatient Routine STEVAN (obstructive sleep Referral apnea) documented as of this encounter Visit Diagnoses Diagnosis STEVAN (obstructive sleep apnea) - Primary Obstructive sleep apnea (adult) (pediatric) Allergic rhinitis Allergic rhinitis, cause unspecified Rhinitis Chronic rhinitis * Assessment & Plan Note - Stacy Julio MD - 06/25/2012 8:15 PM WEATHER ALGORITHM SCIENTIST Associated Problem(s): Rhinitis Refer to Dr. Tripp of ENT to see if there are surgical options for this patient 's nasal congestion and possibly for STEVAN. HER ALGORITHM SCIENTIST * Assessment & Plan Note - Stacy Julio MD - 06/25/2012 8:14 PM WEATHER ALGORITHM SCIENTIST Associated Problem(s): Cluster headache Follow with Teresita Richardson for chronic headaches. HER ALGORITHM SCIENTIST * Assessment & Plan Note - Stacy Julio MD - 06/25/2012 8:13 PM WEATHER ALGORITHM SCIENTIST Associated Problem(s): STEVAN (obstructive sleep apnea) I discussed pathophysiology of STEVAN and its potential contribution to the patient 's symptoms. He reports significant rhinitis and the rhinitis worsens when he h as his cluster COATS (typical for this type of COATS). I referred him to ENT to see i f there are any surgical approaches that may improve nasal patency and/or if he is an appropriate candidate for upper airway surgery for STEVAN. In the meantime, he responded superbly to CPAP on the PSG and said he felt great the next morning . He is getting CPAP set up today for a trial. I hope his headaches improve in frequency and severity, and that his sleep quality and EDS improve. HER ALGORITHM SCIENTIST documented in this encounter
--- OUTSIDE RECORDS SUMMARY | 2018-10-25 16:17 | XMS REPORT | Encounter Summary ---
Author Author [facility] Organization [facility] Address Unknown Phone Unavailable Care Team Providers Care Exhibit Specialist Name Role Phone Self, Referral PCP Unavailable Shira Fontnaa MD Unavailable [facility] Unavailable Mercedes Julio MD Unavailable Prieto Tripp MD Unavailable Luann Jane MD Unavailable Unavailable Camilo Son MD Unavailable Reason for Visit * Reason Comments Post Operative Visit Septum splint removal , PT state's " L side sounds clogged & R is clear " Encounter Details Care Team Description Date Type Department Camilo Son MD [address] [facility] [address] [place] [address] DNS (deviated nasal septum); Nasal turbinate hypertrophy 10/05/2012 Office Visit [facility] [address] [place] [address] Social History Date Tobacco Use Types Packs/Day [...] Pressure 73 10/05/2012 10:00 AM CDT Pulse - - Temperature - - Respiratory Rate - - Oxygen Saturation - - Inhaled Oxygen Concentration 69.9 kg (154 lb 3.2 oz) 10/05/2012 10:00 AM CDT Weight 172.7 cm (5' 8") 10/05/2012 10:00 AM CDT Height 23.45 10/05/2012 10:00 AM CDT Body Mass Index documented in this encounter Progress Notes * Camilo Son MD - 10/05/2012 10:02 AM CDT Subjective: Jason Mason is a 42 y.o. male. History of Present Illness 42 year old male status post septoplasty and turbinate reduction 09/27/[address] Sanya Tripp. Here for splint removal. Minimal bleeding initially after surgery bu t only crusting now. Pain control has been ok. Does have some pressure and con gestion in nose. Has only been irrigating once daily and very intermittently. No fevers, no green drainage. Review of Systems Constitutional: Positive for diaphoresis. HENT: Positive for ear pain (L side ), neck pain and sinus pressure. Eyes: Positive for photophobia and pain. Respiratory: Positive for apnea, cough and shortness of breath. Cardiovascular: Negative. Gastrointestinal: Negative. Genitourinary: Negative. Musculoskeletal: Positive for myalgias, back pain and joint swelling. Skin: Negative. Neurological: Positive for dizziness, numbness and headaches. Hematological: Negative. Psychiatric/Behavioral: Positive for disturbed wake/sleep cycle. Objective: vitamins, multiple cap Take 1 Cap by mouth daily. TOPIRAMATE (TOPAMAX PO) Take 100 mg by mouth twice daily. HYDROcodone/acetaminophen(+) (LORTAB) 7.5/500 mg tablet Take 1 Tab by mouth every 4 hours as needed. Filed Vitals: 10/05/12 1000 BP: 125/82 Pulse: 73 Height: 172.7 cm (68") Weight: 69.945 kg (154 lb 3.2 oz) Body mass index is 23.45 kg/(m^2). Physical Exam Alert, oriented, NAD EOMI Minimal crusting along septum, no purulence Septum midline, no hematoma, no perforation No splints in place Crusting along inferior edge of turbinates bilaterally Suctioned out all crusts Assessment and Plan: 42 year old male POD#8 s/p septoplasty turbinate reduction -no splints to remove, (op note reviewed as well) -no hematoma, no perf -instructed to resume irrigations -follow up [address] Tripp documented in this encounter Plan of Treatment Not on filedocumented as of this encounter Visit Diagnoses Diagnosis DNS (deviated nasal septum) Deviated nasal septum Nasal turbinate hypertrophy Hypertrophy of nasal turbinates documented in this encounter
--- OUTSIDE RECORDS SUMMARY | 2018-10-25 16:18 | XMS REPORT | Encounter Summary ---
Author Author [facility] Organization [facility] Address Unknown Phone Unavailable Care Team Providers Care Sugar Plantation Manager Name Role Phone Unverified, Unverified Md PCP Unavailable Encounter Details Care Team Description Date Type Department Monique Bryan MD [address] [facility] [address] [place] [address] [phone] Headache(784.0) 06/11/2011 Hospital [facility] [address] [address] Social History Date Tobacco Use Types Packs/Day Years Used Never Assessed Sex Assigned at Date Recorded Not on file Industry Job Start Date Occupation Not on file Not on file Not on file Travel End Travel History Travel Start No recent travel history available. documented as of this encounter Plan of Treatment Not on filedocumented as of this encounter Procedures Comments Procedure Name Priority Date/Time Associated Diagnosis TSH WITH FREE T4 REFLEX 06/11/2011 Headache 4:30 PM AUTOMOTIVE DISMANTLER 25-OH VITAMIN D (D2 + D3) 06/11/2011 Headache 4:30 PM AUTOMOTIVE DISMANTLER CBC 06/11/2011 Headache 4:30 PM AUTOMOTIVE DISMANTLER COMPREHENSIVE METABOLIC 06/11/2011 Headache PANEL 4:30 PM AUTOMOTIVE DISMANTLER documented in this encounter Results * 25-OH VITAMIN D (D2 + D3) (06/11/2011 4:30 PM AUTOMOTIVE DISMANTLER) Vitamin 9.1 (L) 30 - 80 NG/ML [facility] D(25-OH)Total Specimen Performing Organization Address [facility]State[facility] Phone Number [facility] * TSH WITH FREE T4 REFLEX (06/11/2011 4:30 PM AUTOMOTIVE DISMANTLER) Pathologist [facility] TSH 1.580 0.35 - 5.00 MCU/ML [facility] Specimen Performing Organization Address [facility] Phone Number [facility] * CBC (06/11/2011 4:30 PM AUTOMOTIVE DISMANTLER) Pathologist [facility] White Blood 6.4 4.5 - 11.0 K/UL [facility] Cells RBC 4.70 4.4 - 5.5 M/UL [facility] Hemoglobin 14.1 13.5 - 16.5 GM/DL [facility] Hematocrit 42.4 40 - 50 % [facility] MCV 91.0 80 - 100 FL [facility] MCH 30.0 26 - 34 PG [facility] MCHC 33.0 32.0 - 36.0 G/DL [facility] RDW 13.7 11 - 15 % [facility] Platelet Count 324 150 - 400 K/UL [facility] MPV 8.0 7 - 11 FL [facility] Specimen Performing Organization Address [facility] Phone Number [facility] * COMPREHENSIVE METABOLIC PANEL (06/11/2011 4:30 PM AUTOMOTIVE DISMANTLER) Pathologist [facility] Sodium 137 137 - 147 MMOL/L [facility] Potassium 4.1 3.5 - 5.1 MMOL/L [facility] Chloride 104 98 - 110 MMOL/L [facility] Glucose 92 70 - 100 MG/DL [facility] Blood Urea 13 8 - 20 MG/DL [facility] Nitrogen Creatinine 1.41 (H) 0.4 - 1.24 MG/DL [facility] Calcium 9.2 9.0 - 11.0 MG/DL [facility] Total Protein 7.1 6.0 - 8.0 G/DL [facility] Total Bilirubin 1.4 (H) 0.3 - 1.2 MG/DL [facility] Albumin 4.1 3.5 - 5.0 G/DL [facility] Alk Phosphatase 59 25 - 110 U/L [facility] AST (SGOT) 16 7 - 40 U/L [facility] CO2 27 21 - 30 MMOL/L [facility] ALT (SGPT) 13 7 - 56 U/L [facility] Anion Gap 6 (L) 8 - 12 [facility] eGFR Non 56 (L) >60 ML/MIN/1.73 SQM [facility] Comment: [place] The eGFR is not validated for use in drug dosing adjustments.Continue to use estimated creatinine clearance per dosing reference text.Please contact the Clinical Pharmacist for questions. eGFR >60 >60 ML/MIN/1.73 SQM [facility] [place] Comment: The eGFR is not validated for use in drug dosing adjustments.Continue to use estimated creatinine clearance per dosing reference text.Please contact the Clinical Pharmacist for questions. Specimen Performing Organization Address City/State/Zipcode Phone Number [facility] RES[facility] documented in this encounter Visit Diagnoses Diagnosis Headache(784.0) Headache documented in this encounter
--- OUTSIDE RECORDS SUMMARY | 2018-10-25 16:18 | XMS REPORT | Encounter Summary ---
Author Author [facility] Organization [facility] Address Unknown Phone Unavailable Care Team Providers Care Negotiator Name Role Phone Self, Referral PCP Unavailable Shira Fontana MD Unavailable [facility] Unavailable Mercedes Julio MD Unavailable Reason for Visit * Reason Comments Test/procedure Encounter Details Care Team Description Date Type Department Obstructive sleep apnea (adult) (pediatric) (Primary Dx) 06/08/2012 Clinical [facility] Support Physicians-Neurology [address] [place] [id number] Social History Date Tobacco Use Types Packs/Day [...] history available. documented as of this encounter Progress Notes * Saad Lui - 06/07/2012 7:57 PM [employer] EVENING QUESTIONNAIRE Personal interpretation of sleep problem: HEAVY SWEATS, WAKING UP FREQUENT Length of problem: 2+YEARS Previously treated: No How: Previously Sleep Study: No Where: When: Weekday Bedtime: 10PM Weekday Wake Time: 5-6AM Weekend Bedtime: 12AM Weekend Wake Time: 7-8PM Typical amount of time it takes to fall asleep: A LONG LONG TIME Times woken during the night: SEVERAL Reason: THIRST,SWEAT,RESTLESSNESS If applicable, hours worked: NA Sleep Issues: Difficulty staying awake, Takes naps during the day, Cannot get back to sleep if woken up at night, Snoring, Stop breathing during sleep, Sweat during sleep, Dry mouth, Morning headaches, Feels tired after waking, Daytime sleepiness, Daytime fatigue and Irritable Level of Tiredness: 3 Sitting and reading 3 Watching TV 0 SItting inactive in a public place 3 Passenger in car for an hour without a break 0 Lying down to rest in the afternoon when circumstances permit 2 Sitting and talking to someone 0 Sitting quietly after a lunch without alcohol 0 In car while stopped for a few minutes in traffic MORNING QUESTIONNAIRE Sleep Lab Questionnaire Total minutes it took to fall asleep: UNSURE Length of Sleep: MOST OF THE NIGHT hour(s) Sleep compared to a typical night was better than normal Factors that influenced sleep quality: NA Sleep quality improved with use of CPAP. D [employer] documented in this encounter Procedure Notes * Stacy Julio MD - 06/07/2012 8:03 PM [employer] Associated Order(s): SLEEP STUDY, NOCTURNAL NEURO Pre-Procedure Diagnose(s): Obstructive sleep apnea (adult) (pediatric) Interpretation: Department of Neurology Sleep Medicine Clinic [facility], [address]rd [place] [address] Sleep Lab: [phone] Nurse number: [phone] History as obtained by questionnaire: The patient is a 41 y.o. year old male reporting frequent nighttime awakenings. Past medical history includes: Past Medical History Diagnosis Date Seizure disorder Migraines Current medications include: Current Outpatient Prescriptions on File Prior to Visit Medication Sig Dispense Refill verapamil SR (VERELAN) 120 mg capsule Take 1 Cap by mouth daily. 90 Cap 1 SUMAtriptan(+) (IMITREX) 5 mg/1 mL [place] One spray in each nostril at the ons et of migraine. May repeat one spray in each nostril in 2 hours if not improved. NTE 40 mg per day or 3 migraines per week 1 Inhaler 3 TOPIRAMATE (TOPAMAX PO) Take 100 mg by mouth twice daily. HYDROcodone/acetaminophen(+) (LORTAB) 7.5/500 mg tablet Take 1 Tab by mouth every 4 hours as needed. Recording montage The patient underwent a routine all night polysomnography recording the followin g channels: 6 EEG, 2 eye, 2 EMG (1 submental and 1 references for bilateral legs ), airflow (thermocouple), one lead EKG, 1 thoracic motion, 1 abdominal motion, microphone for snoring, and pulse oximetry. The study was video recorded. PAP was used during this recording. Polysomnographic findings Total recording time (TRT) was 508 minutes, total sleep time (TST) was 485 minut es for a sleep efficiency of 96%. Sleep onset latency was 1 minutes. REM laten cy was 172 minutes. Sleep architecture showed stage N1 sleep 17%, stage N2 sle ep 57%, stage N3 (slow wave sleep) 3%, and stage R (REM sleep) 24%. The arousal index was 19 events per hour. Respiratory measures Respiratory monitoring showed mild snoring. The overall AHI was 23 events per h our, due to 22 hypopneas, 0 obstructive apneas, 10 mixed apneas and 9 central ap neas. Periodic breathing was not observed. The REM AHI was n/a. The supine A HI was 28 and the lateral AHI was 15. Additional respiratory effort related linda usals were seen. Oxyhemoglobin saturations were 98 % during wakefulness, 97 % during sleep and reached a yanely of 90 % due to respiratory events. CPAP was st arted at 4 cm H20 and titrated up to 10 cm H20. Optimal pressure was 10 cm H20 as evidenced by near elimination of respiratory events, more consolidated sleep and oxyhemoglobin saturations remaining above 94 %, captured during supine REM. EKG EKG showed sinus rhythm throughout with an average heart rate during sleep of 60 . The highest heart rate captured was 84 and the lowest heart rate captured was 60. No arrhythmias were seen. Periodic Limb Movements The periodic limb movement index was 10 per hour due to 79 events. The periodic limb movement index with arousal was 2 per hour due to 19 events. EEG With the 6-lead EEG channels recorded, no abnormalities were seen. Alpha-activi ty at 10 Hz was symmetrical with good reactivity. Spindles and k-complexes were well formed and symmetrical. Impression This overnight polysomnography shows moderate, obstructive sleep apnea with a po sitional component. The patient's sleep in the baseline portion of this recordi ng was severely fragmented due to respiratory events. CPAP was used and this pa tient's CASSANDRA was effectively treated. Sleep also became more consolidated. Mild periodic limb movement disorder was documented. Recommendations CPAP at a pressure of 10 cm H20 with heated humidification is recommended. The mask used during this titration was True Blue nasal large. Weight loss would likely greatly improve this patients CASSANDRA. Given the positional nature of th is recording, if CPAP is not tolerated alternative treatment options can be cons idered such as ENT evaluation for upper airway surgery or an oral appliance made by a dentist. Stacy Julio M.D., [facility] Director, Sleep Medicine Clinic Lights Off: Time: 9:17PM Epoch: 14 Lights On: Time: 5:46AM Epoch: 1031 Arrhthymias: No Type: NA Epochs: NA PAP Final Pressure TX: 10CM C-Flex: + 2 If CPAP not tolerated, reason: NA Mask: RESPIRONICS TRUE BLUE NASAL Size: LARGE Mask Change Needed: No ESS: 11 PLMS: Yes Chin Strap: No Humidity: No Epoch Position Snoring Centrals Apneas Hypopneas AHI/CPAP Pressure TX Low SPO2 0-60 SR OCC - - 6 - 91 61-120 RS MILD - - 5 - 91 121-180 S MILD 7 7 5 (30) - 93 181-240 S MILD - 3 4 (37) 37*60/103=21.55 90 241-300 S MILD 1 - 2 (40) TX4CM(265)5CM(295) 91 301-360 S OCC 3 - 1 TX5CM(337)6CM 94 361-420 REM S OCC - - 1 TX6CM(398)7CM 94 421-480 REM S OCC - - - TX7CM 96 481-540 REM S OCC - - - TX 7CM(499)CFLEX+2 95 541-600 S OCC - 1 2 (48) TX7CM+2(592)8CM+2 93 601-660 S OCC - - - TX8CM+2 96 661-720 REM S OCC - - - TX8CM+2 95 721-780 S OCC - - - TX8CM+2 95 781-840 S OCC - 1 - TX8CM+2(832)9CM+2 93 841-900 REM S OCC - - - TX9CM+2 96 901-960 S OCC - - - TX9CM+2 95 961-1020 S OCC - - - TX9CM+2(983)10CM+2 95 5998-3734 REM S OCC - - - TX10CM+2 96 4342-4048 4474-9427 [phone] Tech Summary: PT ARRIVED ON TIME FOR A SPLIT STUDY. CPAP DEMOED PRIOR TO LIGHTS OUT WITH A TRUE BLUE LARGE NASAL MASK. PT C/O NIGHT SWEATS AND FREQUENTLY WAKING UP. CPAP STARTED @ TX4CM W/A TRUE BLUE NASAL LARGE MASK. CFLEX+2 ADDED AT EPOCH 499. FINAL CPAP PRESSURE @ TX 10CM + CFLEX+2 W/A TRUE BLUE LARGE NASAL MASK. D [employer] documented in this encounter Plan of Treatment Not on filedocumented as of this encounter Procedures Comments Procedure Name Priority Date/Time Associated Diagnosis SLEEP STUDY, NOCTURNAL Routine 06/21/2012 Obstructive sleep apnea NEURO 2:58 PM [employer] (adult) (pediatric) documented in this encounter Results * SLEEP STUDY, NOCTURNAL NEURO (06/21/2012 2:58 PM FIELD [employer]OR) Narrative Performed At IN CLINIC Stacy Julio MD 06/21/20122:58 PM Interpretation: Department of Neurology Sleep Medicine Clinic [facility], [address] [place] [address] Sleep Lab: [phone] Nurse number: [phone] History as obtained by questionnaire: The patient is a 41 y.o. year old male reporting frequent nighttime awakenings. Past medical history includes: Past Medical History Diagnosis Date Seizure disorder Migraines Current medications include: Current Outpatient Prescriptions on File Prior to Visit Medication Sig Dispense Refill verapamilSR (VERELAN) 120 mg capsule Take 1 Cap by mouth daily.90 Cap1 SUMAtriptan(+) (IMITREX) 5 mg/1 mL [place] One spray in each nostril at the onset of migraine. May repeat one spray in each nostril in 2 hours if not improved. NTE 40 mg per day or 3 migraines per week 1 Inhaler3 TOPIRAMATE (TOPAMAX PO) Take 100 mg by mouth twice daily. HYDROcodone/acetaminophen(+) (LORTAB) 7.5/500 mg tablet Take 1 Tab by mouth every 4 hours as needed. Recording montage The patient underwent a routine all night polysomnography recording the following channels: 6 EEG, 2 eye, 2 EMG (1 submental and 1 references for bilateral legs), airflow (thermocouple), one lead EKG, 1 thoracic motion, 1 abdominal motion, microphone for snoring, and pulse oximetry.The study was video recorded.PAP was used during this recording. Polysomnographic findings Total recording time (TRT) was 508 minutes, total sleep time (TST) was 485 minutes for a sleep efficiency of 96%.Sleep onset latency was 1 minutes.REM latency was 172minutes.Sleep architecture showed stage N1 sleep 17%, stage N2 sleep 57%, stage N3 (slow wave sleep) 3%, and stage R (REM sleep) 24%.The arousal index was 19 events per hour. Respiratory measures Respiratory monitoring showed mild snoring.The overall AHI was 23 events per hour, due to 22 hypopneas, 0 obstructive apneas, 10 mixed apneas and 9 central apneas. Periodic breathing was not observed.The REM AHI was n/a.The supine AHI was 28 and the lateral AHI was 15.Additional respiratory effort related arousals were seen.Oxyhemoglobin saturations were 98 % during wakefulness,97 % during sleep and reached a yanely of 90 % due to respiratory events.CPAP was started at 4 cm H20 and titrated up to 10 cm H20.Optimal pressure was 10 cm H20 as evidenced by near elimination of respiratory events, more consolidated sleep and oxyhemoglobin saturations remaining above 94 %, captured during supine REM. EKG EKG showed sinus rhythm throughout with an average heart rate during sleep of 60.The highest heart rate captured was 84 and the lowest heart rate captured was 60. No arrhythmias were seen. Periodic Limb Movements The periodic limb movement index was 10 per hour due to 79 events.The periodic limb movement index with arousal was 2 per hour due to 19 events. EEG With the 6-lead EEG channels recorded, no abnormalities were seen.Alpha-activity at 10 Hz was symmetrical with good reactivity.Spindles and k-complexes were well formed and symmetrical. Impression This overnight polysomnography shows moderate, obstructive sleep apnea with a positional component.The patient's sleep in the baseline portion of this recording was severely fragmented due to respiratory events.CPAP was used and this patient's CASSANDRA was effectively treated. Sleep also became more consolidated. Mild periodic limb movement disorder was documented. Recommendations CPAP at a pressure of 10cm H20 with heated humidification is recommended.The mask used during this titration was True Blue nasal large.Weight loss would likely greatly improve this patient s CASSANDRA.Given the positional nature of this recording, if CPAP is not tolerated alternative treatment options can be considered such as ENT evaluation for upper airway surgery or an oral appliance made by a dentist. Stacy Julio M.D., [facility] Director, Sleep Medicine Clinic Lights Off: Time: 9:17PM Epoch: 14 Lights On: Time: 5:46AM Epoch: 1031 Arrhthymias:No Type: NA Epochs: NA PAP Final Pressure TX:10CM C-Flex: + 2 If CPAP not tolerated, reason: NA Mask:RESPIRONICS TRUE BLUE NASALSize: LARGE Mask Change Needed: No ESS: 11 PLMS: Yes Chin Strap: No Humidity: No Epoch Position Snoring Centrals Apneas Hypopneas AHI/CPAP Pressure TX Low SPO2 0-60 SR OCC - - 6 - 91 61-120 RS MILD - - 5 - 91 121-180 S MILD 7 7 5(30) - 93 181-240 S MILD - 3 4(37) 37*60/103=21.55 90 241-300 S MILD 1 - 2(40) TX4CM(265)5CM(295) 91 301-360 S OCC 3 - 1 TX5CM(337)6CM 94 361-420 REM S OCC - - 1 TX6CM(398)7CM 94 421-480 REM S OCC - - - TX7CM 96 481-540 REM S OCC - - - TX 7CM(499)CFLEX+2 95 541-600 S OCC - 12 (48) TX7CM+2(592)8CM+2 93 601-660 S OCC - - - TX8CM+2 96 661-720 REM S OCC - - - TX8CM+2 95 721-780 S OCC - - - TX8CM+2 95 781-840 S OCC - 1 - TX8CM+2(832)9CM+2 93 841-900 REM S OCC - - - TX9CM+2 96 901-960S OCC - - - TX9CM+2 95 961-1020 S OCC - - - TX9CM+2(983)10CM+2 95 4243-0518 REM S OCC - - - TX10CM+2 96 5046-1721 1599-1638 [phone] Tech Summary:PT ARRIVED ON TIME FOR A SPLIT STUDY. CPAP DEMOED PRIOR TO LIGHTS OUT WITH A TRUE BLUE LARGE NASAL MASK. PT C/O NIGHT SWEATS AND FREQUENTLY WAKING UP.CPAP STARTED @ TX4CM W/A TRUE BLUE NASAL LARGE MASK. CFLEX+2 ADDED AT EPOCH 499. FINAL CPAP PRESSURE @ TX 10CM + CFLEX+2 W/A TRUE BLUE LARGE NASAL MASK. Procedure Note Mercedes Julio MD - 06/07/2012 8:03 PM FIELD [employer]OR Interpretation: Department of Neurology Sleep Medicine Clinic [address] [place] [address], [address] [place] [address] Sleep Lab: [phone] Nurse number: [phone] History as obtained by questionnaire: The patient is a 41 y.o. year old male reporting frequent nighttime awakenings. Past medical history includes: Past Medical History Diagnosis Date Seizure disorder Migraines Current medications include: Current Outpatient Prescriptions on File Prior to Visit Medication Sig Dispense Refill verapamil SR (VERELAN) 120 mg capsule Take 1 Cap by mouth daily. 90 Cap 1 SUMAtriptan(+) (IMITREX) 5 mg/1 mL [place] One spray in each nostril at the onset of migraine. May repeat one spray in each nostril in 2 hours if not improved. NTE 40 mg per day or 3 migraines per week 1 Inhaler 3 TOPIRAMATE (TOPAMAX PO) Take 100 mg by mouth twice daily. HYDROcodone/acetaminophen(+) (LORTAB) 7.5/500 mg tablet Take 1 Tab by mouth every 4 hours as needed. Recording montage The patient underwent a routine all night polysomnography recording the following channels: 6 EEG, 2 eye, 2 EMG (1 submental and 1 references for bilateral legs), airflow (thermocouple), one lead EKG, 1 thoracic motion, 1 abdominal motion, microphone for snoring, and pulse oximetry. The study was video recorded. PAP was used during this recording. Polysomnographic findings Total recording time (TRT) was 508 minutes, total sleep time (TST) was 485 minutes for a sleep efficiency of 96%. Sleep onset latency was 1 minutes. REM latency was 172 minutes. Sleep architecture showed stage N1 sleep 17%, stage N2 sleep 57%, stage N3 (slow wave sleep) 3%, and stage R (REM sleep) 24%. The arousal index was 19 events per hour. Respiratory measures Respiratory monitoring showed mild snoring. The overall AHI was 23 events per hour, due to 22 hypopneas, 0 obstructive apneas, 10 mixed apneas and 9 central apneas. Periodic breathing was not observed. The REM AHI was n/a. The supine AHI was 28 and the lateral AHI was 15. Additional respiratory effort related arousals were seen. Oxyhemoglobin saturations were 98 % during wakefulness, 97 % during sleep and reached a yanely of 90 % due to respiratory events. CPAP was started at 4 cm H20 and titrated up to 10 cm H20. Optimal pressure was 10 cm H20 as evidenced by near elimination of respiratory events, more consolidated sleep and oxyhemoglobin saturations remaining above 94 %, captured during supine REM. EKG EKG showed sinus rhythm throughout with an average heart rate during sleep of 60. The highest heart rate captured was 84 and the lowest heart rate captured was 60. No arrhythmias were seen. Periodic Limb Movements The periodic limb movement index was 10 per hour due to 79 events. The periodic limb movement index with arousal was 2 per hour due to 19 events. EEG With the 6-lead EEG channels recorded, no abnormalities were seen. Alpha- activity at 10 Hz was symmetrical with good reactivity. Spindles and k- complexes were well formed and symmetrical. Impression This overnight polysomnography shows moderate, obstructive sleep apnea with a positional component. The patient's sleep in the baseline portion of this recording was severely fragmented due to respiratory events. CPAP was used and this patient's CASSANDRA was effectively treated. Sleep also became more consolidated. Mild periodic limb movement disorder was documented. Recommendations CPAP at a pressure of 10 cm H20 with heated humidification is recommended. The mask used during this titration was True Blue nasal large. Weight loss would likely greatly improve this patient s CASSANDRA. Given the positional nature of this recording, if CPAP is not tolerated alternative treatment options can be considered such as ENT evaluation for upper airway surgery or an oral appliance made by a dentist. Stacy Julio M.D., [facility] Director, Sleep Medicine Clinic Lights Off: Time: 9:17PM Epoch: 14 Lights On: Time: 5:46AM Epoch: 1031 Arrhthymias: No Type: NA Epochs: NA PAP Final Pressure TX: 10CM C-Flex: + 2 If CPAP not tolerated, reason: NA Mask: RESPIRONICS TRUE BLUE NASAL Size: LARGE Mask Change Needed: No ESS: 11 PLMS: Yes Chin Strap: No Humidity: No Epoch Position Snoring Centrals Apneas Hypopneas AHI/CPAP Pressure TX Low SPO2 0-60 SR OCC - - 6 - 91 61-120 RS MILD - - 5 - 91 121-180 S MILD 7 7 5 (30) - 93 181-240 S MILD - 3 4 (37) 37*60/103=21.55 90 241-300 S MILD 1 - 2 (40) TX4CM(265)5CM(295) 91 301-360 S OCC 3 - 1 TX5CM(337)6CM 94 361-420 REM S OCC - - 1 TX6CM(398)7CM 94 421-480 REM S OCC - - - TX7CM 96 481-540 REM S OCC - - - TX 7CM(499)CFLEX+2 95 541-600 S OCC - 1 2 (48) TX7CM+2(592)8CM+2 93 601-660 S OCC - - - TX8CM+2 96 661-720 REM S OCC - - - TX8CM+2 95 721-780 S OCC - - - TX8CM+2 95 781-840 S OCC - 1 - TX8CM+2(832)9CM+2 93 841-900 REM S OCC - - - TX9CM+2 96 901-960 S OCC - - - TX9CM+2 95 961-1020 S OCC - - - TX9CM+2(983)10CM+2 95 3584-6161 REM S OCC - - - TX10CM+2 96 6409-3986 [phone] Tech Summary: PT ARRIVED ON TIME FOR A SPLIT STUDY. CPAP DEMOED PRIOR TO LIGHTS OUT WITH A TRUE BLUE LARGE NASAL MASK. PT C/O NIGHT SWEATS AND FREQUENTLY WAKING UP. CPAP STARTED @ TX4CM W/A TRUE BLUE NASAL LARGE MASK. CFLEX+2 ADDED AT EPOCH 499. FINAL CPAP PRESSURE @ TX 10CM + CFLEX+2 W/A TRUE BLUE LARGE NASAL MASK. Performing Organization Address City/State/Zipcode Phone Number IN CLINIC documented in this encounter Visit Diagnoses Diagnosis Obstructive sleep apnea (adult) (pediatric) - Primary documented in this encounter
--- OUTSIDE RECORDS SUMMARY | 2018-10-25 16:18 | XMS REPORT | Encounter Summary ---
Author Author [facility] Organization [facility] Address Unknown Phone Unavailable Care Team Providers Care Diamond Cutter Name Role Phone Self, Referral PCP Unavailable Encounter Details Care Team Description Date Type Department Monique Bryan MD [address] [address] [phone] 06/15/2011 Hospital Rad Svcs Encounter Social History Date Tobacco Use Types Packs/Day [...] Comments Procedure Name Priority Date/Time Associated Diagnosis MRI HEAD WO CONTRAST Routine 06/15/2011 2:09 PM DIESEL MOTOR MECHANIC MRI C-SPINE WO CONTRAST Routine 06/15/2011 Cervicalgia 1:20 PM DIESEL MOTOR MECHANIC MRA HEAD WO CONTRAST Routine 06/15/2011 Headache 1:20 PM DIESEL MOTOR MECHANIC documented in this encounter Results * MRI HEAD WO CONTRAST (06/15/2011 2:09 PM DIESEL MOTOR MECHANIC) Exam Status [facility] SIGNED REPORT Exam EXAM: [facility] MRI HEAD WITH AND WITHOUT CONTRAST, MRA HEAD WITHOUT CONTRAST Clinical History: Headache. Technique: Precontrast axial T1, T2, FLAIR, diffusion weighted images, ADC, and postcontrast T1 axial, sagittal, and coronal images were obtained through the brain. Multiple contiguous 3D payb-uf-sbxtob images were obtained through the head. MIP images were reconstructed from the source data. Findings: Dr. Mooney has personally reviewed these images and formulated the opinions and interpretations expressed in this report. No prior studies are available for comparison. MRI Brain: The ventricles and sulci are within normal limits for patient's age.No areas of abnormal enhancement or signal intensity are identified within the brain parenchyma. No midline shift or mass-effect is identified. No intracranial hemorrhage or extra-axial fluid collections are identified. No areas of restricted diffusion are identified to suggest acute ischemia or infarction.Normal signal voids are maintained within the major dural venous sinuses and the port gamble of Ramos.The visualized paranasal sinuses and mastoid air cells are clear. MRA Brain: The distal internal carotid arteries, middle cerebral arteries and anterior cerebral arteries are normal in course and caliber.No aneurysms, high grade stenoses, occlusions or vascular malformations are identified.The region of the anterior communicating artery is unremarkable. The distal vertebral arteries, basilar artery and posterior cerebral arteries are patent with normal caliber and contour.There is no evidence of aneurysm, vascular malformation or high grade stenosis. Bilateral posterior communicating arteries are visualized and appear normal. Impression MRI HEAD W/O [facility] CONTRAST IMPRESSION: MRI BRAIN: UNREMARKABLE MRI SCAN OF THE BRAIN. MRA BRAIN: UNREMARKABLE MRA OF THE HEAD. Residents: ORTIZ ROSALES Electronically signed on: :43AM by HOMER MOONEY M.D. Specimen Impressions Performed At MRI HEAD W/O CONTRAST IMPRESSION: [facility] MRI BRAIN: UNREMARKABLE MRI SCAN OF THE BRAIN. MRA BRAIN: UNREMARKABLE MRA OF THE HEAD. Residents: ORTIZ ROSALES Electronically signed on: :43AM by HOMER MOONEY M.D. Narrative Performed At EXAM: [facility] MRI HEAD WITH AND WITHOUT CONTRAST, MRA HEAD WITHOUT CONTRAST Clinical History: Headache. Technique: Precontrast axial T1, T2, FLAIR, diffusion weighted images, ADC, and postcontrast T1 axial, sagittal, and coronal images were obtained through the brain. Multiple contiguous 3D pepb-av-fpuzax images were obtained through the head. MIP images were reconstructed from the source data. Findings: Dr. Mooney has personally reviewed these images and formulated the opinions and interpretations expressed in this report. No prior studies are available for comparison. MRI Brain: The ventricles and sulci are within normal limits for patient's age.No areas of abnormal enhancement or signal intensity are identified within the brain parenchyma. No midline shift or mass-effect is identified. No intracranial hemorrhage or extra-axial fluid collections are identified. No areas of restricted diffusion are identified to suggest acute ischemia or infarction.Normal signal voids are maintained within the major dural venous sinuses and the port gamble of Ramos.The visualized paranasal sinuses and mastoid air cells are clear. MRA Brain: The distal internal carotid arteries, middle cerebral arteries and anterior cerebral arteries are normal in course and caliber.No aneurysms, high grade stenoses, occlusions or vascular malformations are identified.The region of the anterior communicating artery is unremarkable. The distal vertebral arteries, basilar artery and posterior cerebral arteries are patent with normal caliber and contour.There is no evidence of aneurysm, vascular malformation or high grade stenosis. Bilateral posterior communicating arteries are visualized and appear normal. Performing Organization Address City/State/Zipcode Phone Number [facility] * MRA HEAD WO CONTRAST (06/15/2011 1:20 PM DIESEL MOTOR MECHANIC) Exam Status [facility] RAD SIGNED REPORT Exam EXAM: [facility] MRI HEAD WITH AND WITHOUT CONTRAST, MRA HEAD WITHOUT CONTRAST Clinical History: Headache. Technique: Precontrast axial T1, T2, FLAIR, diffusion weighted images, ADC, and postcontrast T1 axial, sagittal, and coronal images were obtained through the brain. Multiple contiguous 3D [id number]-gw-vtkstd images were obtained through the head. MIP images were reconstructed from the source data. Findings: Dr. Mooney has personally reviewed these images and formulated the opinions and interpretations expressed in this report. No prior studies are available for comparison. MRI Brain: The ventricles and sulci are within normal limits for patient's age.No areas of abnormal enhancement or signal intensity are identified within the brain parenchyma. No midline shift or mass-effect is identified. No intracranial hemorrhage or extra-axial fluid collections are identified. No areas of restricted diffusion are identified to suggest acute ischemia or infarction.Normal signal voids are maintained within the major dural venous sinuses and the port gamble of Ramos.The visualized paranasal sinuses and mastoid air cells are clear. MRA Brain: The distal internal carotid arteries, middle cerebral arteries and anterior cerebral arteries are normal in course and caliber.No aneurysms, high grade stenoses, occlusions or vascular malformations are identified.The region of the anterior communicating artery is unremarkable. The distal vertebral arteries, basilar artery and posterior cerebral arteries are patent with normal caliber and contour.There is no evidence of aneurysm, vascular malformation or high grade stenosis. Bilateral posterior communicating arteries are visualized and appear normal. Impression MRA HEAD W/O [facility] CONTRAST IMPRESSION: MRI BRAIN: UNREMARKABLE MRI SCAN OF THE BRAIN. MRA BRAIN: UNREMARKABLE MRA OF THE HEAD. Residents: ORTIZ ROSALES Electronically signed on: :43AM by HOMER MOONEY M.D. Specimen Impressions Performed At MRA HEAD W/O CONTRAST IMPRESSION: [facility] MRI BRAIN: UNREMARKABLE MRI SCAN OF THE BRAIN. MRA BRAIN: UNREMARKABLE MRA OF THE HEAD. Residents: ORTIZ ROSALES Electronically signed on: :43AM by HOMER MOONEY M.D. Narrative Performed At EXAM: [facility] MRI HEAD WITH AND WITHOUT CONTRAST, MRA HEAD WITHOUT CONTRAST Clinical History: Headache. Technique: Precontrast axial T1, T2, FLAIR, diffusion weighted images, ADC, and postcontrast T1 axial, sagittal, and coronal images were obtained through the brain. Multiple contiguous 3D ndsj-uy-zgzdyq images were obtained through the head. MIP images were reconstructed from the source data. Findings: Dr. Mooney has personally reviewed these images and formulated the opinions and interpretations expressed in this report. No prior studies are available for comparison. MRI Brain: The ventricles and sulci are within normal limits for patient's age.No areas of abnormal enhancement or signal intensity are identified within the brain parenchyma. No midline shift or mass-effect is identified. No intracranial hemorrhage or extra-axial fluid collections are identified. No areas of restricted diffusion are identified to suggest acute ischemia or infarction.Normal signal voids are maintained within the major dural venous sinuses and the port gamble of Ramos.The visualized paranasal sinuses and mastoid air cells are clear. MRA Brain: The distal internal carotid arteries, middle cerebral arteries and anterior cerebral arteries are normal in course and caliber.No aneurysms, high grade stenoses, occlusions or vascular malformations are identified.The region of the anterior communicating artery is unremarkable. The distal vertebral arteries, basilar artery and posterior cerebral arteries are patent with normal caliber and contour.There is no evidence of aneurysm, vascular malformation or high grade stenosis. Bilateral posterior communicating arteries are visualized and appear normal. Performing Organization Address City/State/Zipcode Phone Number [facility] * MRI C-SPINE WO CONTRAST (06/15/2011 1:20 PM DIESEL MOTOR MECHANIC) Exam Status [facility] SIGNED REPORT Exam EXAM: [facility] MRI CERVICAL SPINE WITHOUT CONTRAST Clinical History: Cervicalgia. Technique: Multiple contiguous precontrast T1 and T2-weighted axial and sagittal images were obtained throughout the cervical spine. Findings: Dr. Mooney has personally reviewed these images and formulated the interpretations and opinions expressed in this report. No prior studies are available for comparison There is normal cervical curvature and alignment. The vertebral body heights are well-maintained without a suspicious geographic marrow lesion.The cranial cervical junction is unremarkable. The cervical cord is normal in course, caliber, and signal. No areas of disc bulge are identified. There is no central or neuroforaminal stenosis. The prevertebral and paraspinous soft tissues are unremarkable. Impression MRI C-SPINE W/O [facility] CONTRASTIMPRES SEGUNDO: UNREMARKABLE MRI OF THE CERVICAL SPINE. Residents: ORTIZ ROSALES Electronically signed on: 20119:43AM by HOMER MOONEY M.D. Specimen Impressions Performed At MRI C-SPINE W/O CONTRASTIMPRESSION: [facility] UNREMARKABLE MRI OF THE CERVICAL SPINE. Residents: ORTIZ ROSALES Electronically signed on: 20119:43AM by HOMER MOONEY M.D. Narrative Performed At EXAM: [facility] MRI CERVICAL SPINE WITHOUT CONTRAST Clinical History: Cervicalgia. Technique: Multiple contiguous precontrast T1 and T2-weighted axial and sagittal images were obtained throughout the cervical spine. Findings: Dr. Mooney has personally reviewed these images and formulated the interpretations and opinions expressed in this report. No prior studies are available for comparison There is normal cervical curvature and alignment. The vertebral body heights are well-maintained without a suspicious geographic marrow lesion.The cranial cervical junction is unremarkable. The cervical cord is normal in course, caliber, and signal. No areas of disc bulge are identified. There is no central or neuroforaminal stenosis. The prevertebral and paraspinous soft tissues are unremarkable. Performing Organization Address City/State/Zipcode Phone Number [facility] documented in this encounter Visit Diagnoses Diagnosis Headache(784.0) Headache Cervicalgia documented in this encounter
--- OUTSIDE RECORDS SUMMARY | 2018-10-25 16:18 | XMS REPORT | Encounter Summary ---
Author Author [facility] Organization [facility] Address Unknown Phone Unavailable Care Team Providers Care Post Doctoral Fellow Name Role Phone Self, Referral PCP Unavailable Shira Fontana MD Unavailable Teresita Aguilar Unavailable Reason for Referral * Consult, Test & Treat Referred By Contact Referred To Contact Status Reason Specialty Diagnoses / Procedures Teresita Aguilar APRN-BC [address] [address] Cl[facility] Diagnoses Required Insomnia Reason for Visit * Reason Comments Headache Encounter Details Care Team Description Date Type Department Teresita Aguilar APRNRAMA [address] [address] [phone] Cluster headache; Insomnia; Cervicalgia 05/05/2012 Office Visit [facility] [address] [place] [address] Social History Date Tobacco Use Types Packs/Day [...] history available. documented as of this encounter Patient Instructions * Patient Instructions* Teresita Aguilar APRN-BC - 05/05/2012 2:34 PM PRICING SPECIALIST MRI cervical spine Discuss with PCP tapering off daily Narcotics. Start Verapamil ER 120mg daily. Sleep study. Drink 6-8 glasses of water per day. Eat regularly. Follow up in 2 months. You may reach me by email at [email or web address] or call Slime Workman LPN at [facility] documented in this encounter Progress Notes * Teresita Aguilar APRN-BC - 05/05/2012 1:52 PM PRICING SPECIALIST Subjective: History of Present Illness Jason Mason is a 41 y.o. male. He was seen once by Dr. Bryan on June 12, 2011. He has had headaches for 3-4 years. Headache is characterized by behind his left eyelid, like a splinter, and behind the left and neck, it feels like pressure or as if the left side of his head is swelling, it will progress to entire left side of face. He will have associated symptoms of nausea, nasal congestion on left, Photosensitivity and phonosensitivity. Duration 5 minutes to 2 hours. On a pain scale it is a 12/10. When the pain is intense he loses consciousness and will fall if standing. He ma y have shaking and diaphoresis. Eyes remain open throughout the event. Duration of these symptoms will be 5 minutes and then he will sleep for 1-2 hours. Freque ncy 2-3 times per day for past 2 weeks. He reports daily use of Narcotics for headaches and left hand pain. I informed p atient daily use of narcotics may lead to rebound headache. See PCP who ordered daily narcotics and try to taper off Narcotics. For 2 months he has been having left neck pain with tingling and numbness radiat ing down the left arm. His states he fell with a "seizure" a few months ago in which she thinks he may have injured his neck. He has had 1 year of chronic insomnia. Patient was given Imitrex injectable in the past but he had a problem with injec tion and the syringe did not discharge the medication. He is not interested in t rying injectable again. MRI BRAIN: UNREMARKABLE MRI SCAN OF THE BRAIN. MRA BRAIN: UNREMARKABLE MRA OF THE HEAD. MRI C-SPINE W/O CONTRAST IMPRESSION: UNREMARKABLE MRI OF THE CERVICAL SPINE. Review of Systems Constitutional: Positive for chills. HENT: Positive for ear pain, congestion, neck pain and sinus pressure. Eyes: Positive for pain and visual disturbance. Respiratory: Positive for cough and shortness of breath. Cardiovascular: Negative. Gastrointestinal: Positive for nausea. Genitourinary: Negative. Musculoskeletal: Positive for back pain. Skin: Negative. Neurological: Positive for dizziness, seizures, weakness and headaches. Hematological: Negative. Psychiatric/Behavioral: Positive for disturbed wake/sleep cycle. Objective: TOPIRAMATE (TOPAMAX PO) Take by mouth. HYDROcodone/acetaminophen(+) (LORTAB) 7.5/500 mg tablet Take 1 Tab by mouth every 4 hours as needed. There were no vitals filed for this visit. There is no height or weight on file to calculate BMI. Physical Exam Mental Status: Alert and orented x3. Cooperative with questions and aswers. Speech: Clear and Fluent. Cranial Nerves: EOM"S inatct, face showed a droop on left side of mouth. He was having a headache at the time. I asked him to try and raise the left side of his mouth and was able to do so. Motor: 5/5 bilaterally there is no pronator drift. Coordination: Heel to heck and finger to nose testing intact. Gait: Normal. Assessment and Plan: Narcotic overuse probably attribute to daily headaches. Possible Cluster headaches Neck pain with radiation of numbness and tingling. Insomnia MRI cervical spine since there was a recent fall. Discuss with PCP tapering off daily Narcotics. Start Verapamil ER 120mg daily. Sleep study. Drink 6-8 glasses of water per day. Eat regularly. CBC, CMP Imitrex nasal spray 5mg, 1 spray in each nostril at onset of migraine. MR in 2 h ours, NTE 40mg per day or 3 headaches per week. F/u in 2 months. 40 minutes of time was spent with patient the majority of time was spent in educ ation, counseling and coordination of care. We specifically discussed the diagno sis, previous history, Verapamil, sleep study. ING SPECIALIST documented in this encounter Plan of Treatment Order Schedule Name Type Priority Associated Diagnoses Expected: 05/06/2012, Expires: 05/05/2013 MRI C-SPINE W/O CONTRAST Imaging Routine Cervicalgia Order Schedule Name Type Priority Associated Diagnoses Ordered: 05/05/2012 AMB REFERRAL FOR SLEEP Outpatient Routine Insomnia STUDIES Referral documented as of this encounter Results * COMPREHENSIVE METABOLIC PANEL (05/05/2012 3:00 PM PRICING SPECIALIST) Sodium 137 137 - 147 MMOL/L [facility] Potassium 4.0 3.5 - 5.1 MMOL/L [facility] Chloride 107 98 - 110 MMOL/L [facility] Glucose 83 70 - 100 MG/DL [facility] Blood Urea 9 8 - 20 MG/DL [facility] Nitrogen Creatinine 1.13 0.4 - 1.24 MG/DL [facility] Calcium 9.3 9.0 - 11.0 MG/DL [facility] Total Protein 6.6 6.0 - 8.0 G/DL [facility] Total Bilirubin 0.6 0.3 - 1.2 MG/DL [facility] Albumin 4.2 3.5 - 5.0 G/DL [facility] Alk Phosphatase 56 25 - 110 U/L [facility] AST (SGOT) 13 7 - 40 U/L [facility] CO2 22 21 - 30 MMOL/L [facility] ALT (SGPT) 13 7 - 56 U/L [facility] Anion Gap 8 8 - 12 [facility] eGFR Non >60 >60 ML/MIN/1.73 SQM [facility] Comment: [place] The eGFR is not validated for use in drug dosing adjustments.Continue to use estimated creatinine clearance per dosing reference text.Please contact the Clinical Pharmacist for questions. eGFR >60 >60 ML/MIN/1.73 SQM [facility] [place] Comment: The eGFR is not validated for use in drug dosing adjustments.Continue to use estimated creatinine clearance per dosing reference text.Please contact the Clinical Pharmacist for questions. Specimen Blood - Blood Performing Organization Address City/State/Zipcode Phone Number [facility] * CBC (05/05/2012 3:00 PM PRICING SPECIALIST) White Blood 4.8 4.5 - 11.0 K/UL [facility] Cells RBC 4.50 4.4 - 5.5 M/UL [facility] Hemoglobin 13.4 (L) 13.5 - 16.5 GM/DL [facility] Hematocrit 42.1 40 - 50 % [facility] MCV 93.0 80 - 100 FL [facility] MCH 30.0 26 - 34 PG [facility] MCHC 32.0 32.0 - 36.0 G/DL [facility] RDW 13.8 11 - 15 % [facility] Platelet Count 317 150 - 400 K/UL [facility] MPV 7.0 7 - 11 FL [facility] Specimen Blood - Blood Performing Organization Address City/State/Zipcode Phone Number [facility] documented in this encounter Visit Diagnoses Diagnosis Cluster headache Cluster headache syndrome, unspecified Insomnia Insomnia, unspecified Cervicalgia documented in this encounter
--- OUTSIDE RECORDS SUMMARY | 2018-10-25 16:18 | XMS REPORT ---
Author Author ADAL HAMILTON Organization [facility] Address [address] [place] [address] Care Team Providers Care Net Sorter Name Role Phone ADAL HAMILTON Unavailable PROBLEMS Type Condition ICD9-CM Code [id number] Code Onset Dates Condition Status SNOMED Code Problem Mild intermittent asthma without complication J45.20 Active [id number] ALLERGIES No Information ENCOUNTERS Encounter Location Date Diagnosis [facility] [id number] [place] [phone] Feb, [facility] [address], [place] [id number] Jan, Mild intermittent asthma without complication J45.20 [facility] [id number] [place] [phone] Jan, [facility] [id number] [place] [phone] Dec, [facility] [id number] [place] [phone] Dec, [facility] [id number] [place] [phone] Jun, [facility] [id number] [place] [phone] May, [facility] [id number] [place] [phone] Apr, [facility] [id number] [place] [phone] Apr, [facility] [address] [address] Apr, IMMUNIZATIONS No Known Immunizations SOCIAL HISTORY Never Assessed REASON FOR VISIT Refill request PLAN OF CARE VITAL SIGNS MEDICATIONS Unknown Medications RESULTS No Results PROCEDURES No Known procedures INSTRUCTIONS MEDICATIONS ADMINISTERED No Known Medications
--- OUTSIDE RECORDS SUMMARY | 2018-10-25 16:18 | XMS REPORT ---
Author Author Migration, Doctor Organization [facility] Address Unknown Phone Unavailable Care Team Providers Care Beta Tester Name Role Phone Migration, Doctor Unavailable Unavailable PROBLEMS Type Condition ICD9-CM Code [id number] Code Onset Dates Condition Status SNOMED Code Problem Mild intermittent asthma without complication J45.20 Active [id number] ALLERGIES No Information ENCOUNTERS Encounter Location Date Diagnosis [facility] [address] [place] [address] Feb, [facility] [address] [place] [id number] Jan, Mild intermittent asthma without complication J45.20 [facility] [address] [place] [address] Jan, [facility] [id number] [place] [phone] Dec, [facility] [address] [place] [address] Dec, [facility] [id number] [place] [phone] Jun, [facility] [address] [place] [address] May, [facility] [address] [place] [address] Apr, [facility] [address] [place] [address] Apr, [facility] [id number] [place] [phone] Apr, IMMUNIZATIONS No Known Immunizations SOCIAL HISTORY Never Assessed REASON FOR VISIT [facility] PLAN OF CARE VITAL SIGNS MEDICATIONS Unknown Medications RESULTS No Results PROCEDURES No Known procedures INSTRUCTIONS MEDICATIONS ADMINISTERED No Known Medications
--- OUTSIDE RECORDS SUMMARY | 2018-10-25 16:18 | XMS REPORT | Encounter Summary ---
Author Author [facility] Organization [facility] Address Unknown Phone Unavailable Care Team Providers Care Planetarium Sky Show Technician Name Role Phone Self, Referral PCP Unavailable Shira Fontana MD Unavailable Teresita Aguilar CLINICAL RESEARCH NURSE COORDINATOR- Unavailable Encounter Details Care Team Description Date Type Department Teresita Aguilar, CLINICAL RESEARCH NURSE COORDINATOR- [address] [facility] [address] [place], [place] [id number] Cluster headache syndrome, unspecified 05/05/2012 Hospital [facility] [address] [address] Social History Date Tobacco Use Types Packs/Day [...] history available. documented as of this encounter Medications at Time of Discharge Start Date End Date Medication Sig Dispensed Refills HYDROcodone/acetaminophen Take 1 Tab by 0 (+) (LORTAB) 7.5/500 mg mouth every 4 tablet hours as needed. TOPIRAMATE (TOPAMAX PO) Take 100 mg 0 by mouth twice daily. 05/05/2012 10/05/2012 SUMAtriptan(+) (IMITREX) One spray in 1 Inhaler 3 5 mg/1 mL [place] each nostril at the onset of migraine. May repeat one spray in each nostril in 2 hours if not improved. NTE 40 mg per day or 3 migraines per week 05/05/2012 10/05/2012 verapamil SR (VERELAN) Take 1 Cap by 90 Cap 1 120 mg capsule mouth daily. documented as of this encounter Plan of Treatment Not on filedocumented as of this encounter Procedures Comments Procedure Name Priority Date/Time Associated Diagnosis CBC Routine 05/05/2012 Cluster headache 3:00 PM FILENET DEVELOPER COMPREHENSIVE METABOLIC Routine 05/05/2012 Cluster headache PANEL 3:00 PM FILENET DEVELOPER documented in this encounter Results * COMPREHENSIVE METABOLIC PANEL (05/05/2012 3:00 PM FILENET DEVELOPER) Sodium 137 137 - 147 MMOL/L [facility] [...] >60 ML/MIN/1.73 SQM [facility] RESULTS Comment: [place] The eGFR is not validated for use in drug dosing adjustments.Continue to use estimated creatinine clearance per dosing reference text.Please contact the Clinical Pharmacist for questions. eGFR >60 >60 ML/MIN/1.73 SQM [facility] [place] Comment: The eGFR is not validated for use in drug dosing adjustments.Continue to use estimated creatinine clearance per dosing reference text.Please contact the Clinical Pharmacist for questions. Specimen Blood - Blood Performing Organization Address City/State/Zipcode Phone Number [facility] RESULTS * CBC (05/05/2012 3:00 PM FILENET DEVELOPER) White Blood 4.8 4.5 - 11.0 K/UL [...] Diagnosis Cluster headache Cluster headache syndrome, unspecified documented in this encounter
--- OUTSIDE RECORDS SUMMARY | 2018-10-25 16:18 | XMS REPORT | Encounter Summary ---
Author Author [facility] Address Unknown Phone Unavailable Care Team Providers Care Compressed Gas Equipment Mechanic Name Role Phone Self, Referral PCP Unavailable Shira Fontana MD Unavailable [facility]res[facility] Unavailable Mercedes Julio MD Unavailable Reason for Referral * Consult, Test & Treat Referred By Contact Referred To Contact Status Reason Specialty Diagnoses / Procedures [facility] Neurology [address] [place] [address] Closed Specialty Services Home Health Diagnoses Required Services CASSANDRA (obstructive sleep apnea) Encounter Details Care Team Description Date Type Department Mercedes Julio MD [facility] [address] [phone] CASSANDRA (obstructive sleep apnea) (Primary Dx) 06/22/2012 Orders Only [facility] - [facility] [address] [place] [address] Social History Date Tobacco Use Types Packs/Day [...] as of this encounter Plan of Treatment Order Schedule Name Type Priority Associated Diagnoses Ordered: 06/22/2012 AMB REFERRAL TO HOME CARE Outpatient Routine CASSANDRA (obstructive sleep Referral apnea) documented as of this encounter Visit Diagnoses Diagnosis CASSANDRA (obstructive sleep apnea) - Primary Obstructive sleep apnea (adult) (pediatric) documented in this encounter
--- OUTSIDE RECORDS SUMMARY | 2018-10-25 16:18 | XMS REPORT | Encounter Summary ---
Author Author [facility] Organization [facility] Address Unknown Phone Unavailable Care Team Providers Care Field Sales Specialist Name Role Phone Self, Referral PCP Unavailable Shira Fontana MD Unavailable Reason for Visit * Reason Comments Allergies Encounter Details Care Team Description Date Type Department Shira Fontana MD [address] [facility] [address] [place] [address] Food allergy (Primary Dx); Allergic rhinitis 06/26/2011 Office Visit [facility] - Internal Medicine [address] MED OFFICE [address]TH [place] [address] Social History Date Tobacco Use [...] Signs Reading Time Taken Comments Vital Sign 114/70 06/26/2011 4:06 PM IT PROGRAMMER ANALYST Blood Pressure 80 06/26/2011 4:06 PM IT PROGRAMMER ANALYST Pulse 36.5 C (97.7 F) 06/26/2011 4:06 PM IT PROGRAMMER ANALYST Temperature - - Respiratory Rate - - Oxygen Saturation - - Inhaled Oxygen Concentration - - Weight - - Height - - Body Mass Index documented in this encounter Patient Instructions * Patient Instructions* Shira Fontana MD - 06/26/2011 5:01 PM IT PROGRAMMER ANALYST Start zyrtec 10 mg once a day Start Flonase nasal spray. 2 sprays in each nostril once a day. Start daily sinus rinses PROGRAMMER ANALYST documented in this encounter Progress Notes * Shira Fontana MD - 06/26/2011 4:55 PM IT PROGRAMMER ANALYST Jason Mason is a 40 y.o. male. Subjective: History of Present Illness I had the pleasure of seeing your patient Jason Mason at the [facility] in consultation for possible fish allergy. As you know, Jason is a 40-year-old man with a history of migra stef, seizure disorder and trauma to his left hand. The patient says he would l gini to find out if he is allergic to fish as he would like to participate in a r esearch study with [facility] and they need to know if he truly has a fis h allergy. He states that as a child, his mother told him that after he ate fis h, he developed swelling of his throat and hives all over and since then he has been avoiding fish. However, he does tolerate shellfish and he eats shrimp, lob ster and crabs all the time. He also eats tuna without any problem. He denies any other food allergies. No history of asthma or eczema. He does say that he has a constant runny stuffy nose with a lot of sneezing and itching. He also has watery eyes. He also reports multiple sinus infections, f or which he has been treated with antibiotics, [facility] At that time, he had a CT of his head done to evaluate for his seizure diso rder and incidentally they picked up sinusitis and he was treated with a course of Biaxin. SOCIAL HISTORY: He is currently on disability. 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 He smokes about 1/2 pack of cigarettes a day since the past 22 years . Denies any alcohol use. He is with 3 children. PAST MEDICAL HISTORY: He has a history of seizure disorder, migraines and he levi s had multiple surgeries in his right hand. ENVIRONMENTAL HISTORY: He lives in a house, which has a finished basement . Th ere is no water or mold damage. There is carpeting in the house and he also has 2 dogs in his house, which are often in his bedroom. (DOC:[id number]) Review of Systems Constitutional: Negative. HENT: Positive for congestion and rhinorrhea. Eyes: Negative. Respiratory: Negative. Cardiovascular: Negative. Skin: Negative. Neurological: Positive for seizures and headaches. Objective: HYDROcodone/acetaminophen(+) (LORTAB) 7.5/500 mg tablet Take 1 Tab by mouth every 4 hours as needed. TOPIRAMATE (TOPAMAX PO) Take by mouth. Filed Vitals: 06/26/11 1606 BP: 114/70 Pulse: 80 Temp: 36.5 C (97.7 F) TempSrc: Oral There is no height or weight on file to calculate BMI. Physical Exam Constitutional: No distress. HENT: Right Ear: External ear normal. Left Ear: External ear normal. Right inferior nasal turbinate enlarged and boggy. Erythema in posterior o ro pharynx. Eyes: Conjunctivae are normal. No scleral icterus. Neck: Neck supple. Cardiovascular: Normal rate and regular rhythm. Pulmonary/Chest: Breath sounds normal. He has no wheezes. Lymphadenopathy: He has no cervical adenopathy. Skin: Skin is warm and dry. No rash noted. Testing Information Consent Obtained: Yes Last Antihistamine Date: (> 7 days ago) Time Antigen Placed: 1535 Needle Type: Jai Tip/HS Test Location: Back Antigen Magistrate Judge: Nirmala Testing Nurse: Ayesha Robins RN Reviewing Physician: Dr. Velazco Time Test Read: 1550 Controls: Wheal (mm) / Flare (mm) / Score 1. Dil w/50% Glycerin (HS): 0 2. Histamine Phos: 10mm wheal / 0 flare Trees: Wheal (mm) / Flare (mm) / Score 3. Hard/Sugar Maple 1:20 (HS): 5mm wheal / 0 flare 4. Comoran Elm 1:20 (HS): 0 5. Common Seminole 1:20 (HS): 0 6. Olanta 1:20 (HS): 5mm wheal / 0 flare 7. Pecan Tree 1:20 (HS): 0 8. Black Whitefish Tree 1:20 (HS): 0 9. Red/White Fossil Mix 1:20 (HS): 0 10. White José 1:20 (HS): 0 11. Mountain Pratt 1:20 (HS): 5mm wheal / 0 flare 12. Birch 1:20 (HS): 5 mm wheal / 0 flare Grasses: Wheal (mm) / Flare (mm) / Score 14. Matthew 10,000 Bau/ml (HS): 20mm wheal / 45mm flare 15. Bermuda 10,000 Bau/ml (HS): 0 16. Ted 1:20 (HS): 5mm wheal / 0mm flare Weeds: Wheal (mm) / Flare (mm) / Score 17. Short Ragweed 1:20 (HS): 5mm wheal / 15mm flare 18. Sagebrush/Mugwort 1;20 (HS): 0 19. Kochia 1:20 (HS): 0 20. Careless/Pigweed Mix 1:20 (HS): 0 21. Dock/Watson Mix 1:20 (HS): 0 Animals, Mites, Cockroaches: Wheal (mm) / Flare (mm) / Score 22. Derm. Pteronyssinus 30,000 AU/ml (HS): 2mm wheal / 0 flare 23. Derm. Farinae 30,000 AU/ml (HS): 2mm wheal / 0 flare 24. Cat Epithelium 10,000/ml (HS): 5mm wheal / 10mm flare 25. Dog Epithelium 1:10 (HS): 2mm wheal / 0 mm flare 26. Horse Epithelium 1:20 (HS): 2mm wheal / 0 mm flare 27. Cockroach Mix 1:10 (HS): 5mm wheal / 10mm flare 28. Guinea Pig Hair/Dander 1:10 (HS): 0 Molds and Fungi: Wheal (mm) / Flare (mm) / Score 29. Alternaria Tenuis 1:10 (HS): 0 30. Horm. Cladosporium 1:10 (HS): 5mm wheal / 10mm flare 31. Helminthosporium Inters. 1:10 (HS): 5mm wheal / 10mm flare 32. Fusarium Vasinfectum 1:10 (HS): 10mm wheal /15mm flare 33. Aspergillus Fum. 1:10 (HS): 10mm wheal / 15mm flare 34. Penicilliun [place] 1:10 (HS): 2mm wheal / 0mm flare 35. Feathers: 2mm wheal / 0mm flare Foods: Wheal (mm) / Flare (mm) / Score 42. Codfish Mix 1:10 (HS): 2mm wheal / 0mm flare Assessment and Plan: 1- Food allergy: Percutaneous skin prick testing to fish was negative. We will also check immunocap to fish today. 2- Allergic rhinitis: Percutaneous skin prick testing revealed he is allergic t o trees, grass, weeds and mold. Advised to start zyrtec 10 mg daily and intrana angely steroid (nasonex or Flonase) 2 sprays in each nostril once a day and daily s inus rinses. I also gave him a sample of Nasonex and sinus rinses. RTC in 3 months. Shira Mujica MD PROGRAMMER ANALYST documented in this encounter Plan of Treatment Order Schedule Name Type Priority Associated Diagnoses Ordered: 06/26/2011 MISCELLANEOUS LAB TEST Lab Routine Food allergy documented as of this encounter Visit Diagnoses Diagnosis Food allergy - Primary Other adverse food reactions, not elsewhere classified Allergic rhinitis Allergic rhinitis, cause unspecified documented in this encounter
--- OUTSIDE RECORDS SUMMARY | 2018-10-25 16:19 | XMS REPORT ---
Author Author ADAL HAMILTON Organization [facility] [place] Address [address] [place] [address] Care Team Providers Care Die Cutter Apprentice Name Role Phone ADAL HAMILTON Unavailable PROBLEMS Type Condition ICD9-CM Code ZOV83-EB Code Onset Dates Condition Status SNOMED Code Problem Mild intermittent asthma without complication J45.20 Active [id number] ALLERGIES No Information ENCOUNTERS Encounter Location Date Diagnosis [facility] [place] [address] [place] [phone] Feb, [facility] [address] [place], [place] [id number] Jan, Mild intermittent asthma without complication J45.20 [facility] [place] [id number] [place] [phone] Jan, [facility] [place] [id number] [place] [phone] Dec, [facility] [place] [id number] [place] [phone] Dec, [facility] [place] [address] [place] [phone] Jun, [facility] [place] [address] [place] [phone] May, [facility] [place] [address] [place] [phone] Apr, [facility] [place] [id number] [place] [phone] Apr, [facility] [place] [address] [address] Apr, IMMUNIZATIONS No Known Immunizations SOCIAL HISTORY Never Assessed REASON FOR VISIT usp PLAN OF CARE VITAL SIGNS Height 68 in 2018-02-02 Weight 137 lbs 2018-02-02 Heart Rate 78 bpm 2018-02-02 Respiratory Rate 18 2018-02-02 BMI 20.83 kg/m2 2018-02-02 Blood pressure systolic 96 mmHg 2018-02-02 Blood pressure diastolic 64 mmHg 2018-02-02 MEDICATIONS Unknown Medications RESULTS No Results PROCEDURES No Known procedures INSTRUCTIONS MEDICATIONS ADMINISTERED No Known Medications
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
--- NOTE | 2018-10-25 16:45 | NUR ---
arriving and allowed to room. Pt was brought fried chicken from . Pt c/o hunger from being at appointments all day.
--- NOTE | 2018-10-25 16:50 | NUR ---
Add'l friend arriving to see patient. All visitors eating chicken also. Receiving return call from [facility] at Dr Glaser office. Pt was seen and arranged for future MRI and EMG. They want pt to take Vitamin 500 mg daily. They did not recommend a hand splint or provide medications other than the Vitamin C. The office is finding concern of re-appearance into ER for hand eval after an evaluation with them.
[2018-10-25 17:00] VITALS: BP 139/88
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
--- NOTE | 2018-10-25 17:00 | NUR ---
Pt discharged to home after review of home instructions discussed. Stressed importance of follow up already planned by Dr Glaser.
== END 2018-10-25 17:00 | disposition home or self-care (01) ==
LOC: EDUNIT# 16:12 → ER FS 16:14
DX: M79.641 Pain in right hand (principal); G47.30 Sleep apnea, unspecified; I10 Essential (primary) hypertension; G43.909 Migraine, unspecified, not intractable, without status migrainosus; G40.909 Epilepsy, unspecified, not intractable, without status epilepticus; F41.9 Anxiety disorder, unspecified; Z87.19 Personal history of other diseases of the digestive system; Z85.038 Personal history of other malignant neoplasm of large intestine; Z88.6 Allergy status to analgesic agent; Z88.4 Allergy status to anesthetic agent; Z88.5 Allergy status to narcotic agent; Z88.8 Allergy status to other drugs, medicaments and biological substances; Z79.52 Long term (current) use of systemic steroids; Z87.891 Personal history of nicotine dependence; Z98.890 Other specified postprocedural states; Z90.49 Acquired absence of other specified parts of digestive tract
CPT/HCPCS: 99282

== ENCOUNTER → 2018-11-10 | Outpatient (CLI) | payer MEDICARE, MEDICAID ==
[2018-11-10 12:55] LABS: BASOPHILS % (AUTO) 0 % (0-10); EOSINOPHILS % (AUTO) 1 % (0-10); HEMATOCRIT 42 % (40-54); HEMOGLOBIN 13.9 G/DL (13.3-17.7); LYMPHOCYTES % (AUTO) 46 % (12-44); MEAN CORPUSCULAR HEMOGLOBIN 29 PG (25-34); MEAN CORPUSCULAR HGB CONC 33 G/DL (32-36); MEAN CORPUSCULAR VOLUME 88 FL (80-99); MEAN PLATELET VOLUME 8.4 FL (7.4-10.4); MONOCYTES # (AUTO) 0.4 X 10^3 (0.0-1.0); MONOCYTES % (AUTO) 8 % (0-12); NEUTROPHILS # (AUTO) 1.9 X 10^3 (1.8-7.8); NEUTROPHILS % (AUTO) 45 % (42-75); PLATELET COUNT 299 10^3/uL (130-400); WHITE BLOOD COUNT 4.3 10^3/uL (4.3-11.0)
[2018-11-10 13:11] LABS: ALANINE AMINOTRANSFERASE 25 U/L (0-55); ALBUMIN 4.5 GM/DL (3.2-4.5); ALKALINE PHOSPHATASE 78 U/L (40-136); BILIRUBIN,TOTAL 0.9 MG/DL (0.1-1.0); BUN/CREATININE RATIO 11; CALCIUM 9.4 MG/DL (8.5-10.1); CARBON DIOXIDE 22 MMOL/L (21-32); CHLORIDE 106 MMOL/L (98-107); CREATININE SERUM 1.15 MG/DL (0.60-1.30); GFR ESTIMATED > 60; GLUCOSE 88 MG/DL (70-105); POTASSIUM 3.5 MMOL/L (3.6-5.0); SODIUM 137 MMOL/L (135-145); TOTAL PROTEIN 7.2 GM/DL (6.4-8.2)
--- NOTE | 2018-11-10 13:22 | Diagnostic Imaging Report ---
EXAMINATION: Chest, two views. HISTORY: Cough. FINDINGS: Comparison is 09/04/2015. Lungs are clear. No edema or pneumonia. No pleural effusion or pneumothorax. Heart is normal in size. There are surgical clips in the right upper quadrant. IMPRESSION: 1. Clear lungs. Dictated by: Dictated on workstation # [id number]
== END ==
LOC: LAB 12:31
PROVIDERS: ATTEND Family Medicine
DX: C18.9 Malignant neoplasm of colon, unspecified (principal); R63.4 Abnormal weight loss; R19.5 Other fecal abnormalities; R05 Cough
CPT/HCPCS: 36415; 71046; 80053; 82378; 85025

== ENCOUNTER → 2018-12-16 | Outpatient (CLI) | payer MEDICARE, MEDICAID ==
[~2018-12-16] VITALS: Ht 175.3 cm; Wt 68.0 kg
[~2018-12-16] MED LIST changes: -D-ME118S7 PO; +PROM118S4 PO
== END | disposition home or self-care (01) ==
LOC: PREOP 05:38
PROVIDERS: ATTEND Surgery
DX: Z01.818 Encounter for other preprocedural examination (principal)

== ENCOUNTER 2018-12-21 12:28 | Day surgery (SDC) | payer MEDICARE, MEDICAID ==
[2018-12-21] VITALS (9 sets, daily range): BP systolic 78–154; BP diastolic 50–96
[~2018-12-21] VITALS: Ht 175.3 cm; Wt 68.0 kg
[~2018-12-21 12:28] MED LIST changes: +LACTATED RINGERS 1,000 ML IV ONE
[2018-12-21] MEDS ORDERED: LACTATED RINGERS 1,000 ML IV STA (12:36)
[2018-12-21] MEDS ORDERED: HURRICAINE EXT TUBE (BENZOCAINE) XX PRN (12:45)
[2018-12-21] MEDS ORDERED: PROPOFOL INJECTION 50 ML IV ONE ×2 (12:46→13:27)
[2018-12-21] MEDS ORDERED: MIDAZOLAM 2 MG/2 ML (VERSED) VIAL ONE (12:46)
--- NOTE | 2018-12-21 13:24 | Progress Note-Pre Operative ---
Pre-Operative Progress Note H&P Reviewed The H&P was reviewed, patient examined and no changes noted. Date Seen by Provider: Dec 21, 2018 Time Seen by Provider: 13:23 Date H&P Reviewed: Dec 21, 2018 Time H&P Reviewed: 13:23 Pre-Operative Diagnosis: lower abd pain, blood in stools, hx colon cancer KILO PARKER DO Dec 21, 2018 13:23
--- NOTE | 2018-12-21 14:03 | Progress Note-Post Operative ---
Post-Operative Progess Note Surgeon (s)/Extension Work Instructor (s) Surgeon KILO PARKER DO Extension Work Instructor: na Pre-Operative Diagnosis lower abd pain, blood in stools, hx colon cancer Post-Operative Diagnosis slight gastritis, hiatal hernia, normal colon Procedure & Operative Findings Date of Procedure 12/21/18 Procedure Performed/Findings egd c biopsies, colonoscopy Anesthesia Type per electrical assistant Estimated Blood Loss Estimated blood loss (mL): none Specimens/Packing Specimens Removed antrum, ge KILO PARKER DO Dec 21, 2018 14:03
[2018-12-21] MEDS ORDERED: PANT40TA2 PO (14:04)
--- NOTE | 2018-12-21 14:05 | Discharge Inst-Simple/Standard ---
Discharge Inst-Standard Discharge Medications New, Converted or Re-Newed RX: Transmitted to Pharmacy Patient Instructions/Follow Up Plan of Care/Instructions/FU: 2 weeks [place]on Activity as Tolerated: Yes Discharge Diet: Regular Diet KILO PARKER DO Dec 21, 2018 14:05
--- NOTE | 2018-12-21 18:20 | OPERATIVE REPORT ---
DATE OF SERVICE: 12/21/2018 PREOPERATIVE DIAGNOSES: Lower abdominal pain, blood in stools, history of colon cancer. POSTOPERATIVE DIAGNOSES: Slight gastritis, hiatal hernia, normal colon. PROCEDURE: EGD with biopsies and colonoscopy. SURGEON: Kilo Farris DO ANESTHESIA: Per PRIVATE DUTY NURSE. ESTIMATED BLOOD LOSS: None. COMPLICATIONS: None. INDICATIONS: The patient is a 48-year-old male with a history of colon cancer and blood in stools. He experienced lower abdominal pain. He understands risks and benefits of procedures and wished to proceed with procedures. Consent was signed in the chart. PROCEDURE IN DETAIL: The patient was taken to the endoscopy suite, placed in left lateral recumbent position. Timeout was performed. Scope was inserted in mouth, down the esophagus, stomach and into the duodenum without difficulty. There were no polyps, masses or ulcerations within the duodenum. Scope was slowly retracted back into the stomach where it was further insufflated. Some erythematous changes present in the antrum. Biopsy of the antrum was obtained. Slight gastritis appearance. Scope was retroflexed noting a small hiatal hernia, no other pathology. Scope was returned to its normal position, slowly withdrawn to the distal esophagus, which had no polyps, masses or ulcerations. Slight erythema. Biopsy of the GE junction was obtained. Scope was then slowly retracted back to completely remove noting no other pathology. Digital rectal exam was performed. There were no palpable polyps, masses or ulcerations. Scope was inserted in the rectum, advanced all the way to the ileocolonic anastomosis. There were no polyps, mass or ulcerations within the right colon, transverse, descending, sigmoid and rectum. Scope was retroflexed noting no other pathology. Scope was returned to its normal position, slowly withdrawn until completely removed. No source of active bleeding present. If the patient continues to have bleeding, would consider capsule endoscopy. We will start him on Protonix 40 mg daily for the gastritis. The patient will need a repeat colonoscopy in 5 years, any issues before that would be seen at that time. Job ID: [id number] DocumentID: [id number] Dictated Date: 12/21/2018 14:08:05 Sleeve Presser Operator Date: 12/21/2018 18:19:25 Dictated By: KILO FARRIS DO
[2018-12-22] MEDS ORDERED: OXYC1TAB87 PO (11:09)
== END 2018-12-21 15:10 ==
LOC: ENDO 12:28
PROVIDERS: ATTEND Surgery
DX: K21.9 Gastro-esophageal reflux disease without esophagitis (principal); K92.1 Melena; K44.9 Diaphragmatic hernia without obstruction or gangrene; K31.89 Other diseases of stomach and duodenum; I10 Essential (primary) hypertension; G47.33 Obstructive sleep apnea (adult) (pediatric); F41.9 Anxiety disorder, unspecified; R51 Headache; Z85.038 Personal history of other malignant neoplasm of large intestine; Z99.89 Dependence on other enabling machines and devices; Z91.030 Bee allergy status; Z91.013 Allergy to seafood; Z88.6 Allergy status to analgesic agent; Z79.899 Other long term (current) drug therapy; Z87.891 Personal history of nicotine dependence; Z82.49 Family history of ischemic heart disease and other diseases of the circulatory system
CPT/HCPCS: 88305

== ENCOUNTER 2018-12-22 07:51 | Emergency (ER) | payer MEDICARE, MEDICAID ==
[~2018-12-22] VITALS: Ht 175.3 cm; Wt 68.5 kg
[~2018-12-22 07:51] MED LIST changes: -LACTATED RINGERS 1,000 ML IV ONE
[2018-12-22] MEDS ORDERED: DIAZEPAM 5 MG (VALIUM) TABLET PO ONE (08:15)
[2018-12-22] MEDS ORDERED: TETANUS,DIPTH,PERTUSS P/F (BOOSTRIX) 0.5 ML VIAL IM ONE (08:15)
[2018-12-22] MEDS ORDERED: oxyCODONE/APAP 5/325MG (PERCOCET 5) TABLET PO ONE (08:15)
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
--- NOTE | 2018-12-22 08:30 | Diagnostic Imaging Report ---
INDICATION: Right ankle injury. Time of exam: 7:58 AM 3 views of the right ankle were obtained. The alignment is normal. The ankle mortise is well maintained. Talar dome is smooth. No fracture or dislocation is seen. IMPRESSION: No acute bony abnormality is detected. Dictated by: Dictated on workstation # [id number]
--- NOTE | 2018-12-22 08:31 | Diagnostic Imaging Report ---
INDICATION: Right lower leg injury AP and lateral views of the right tibia and fibula show no fracture or dislocation. IMPRESSION: Negative right tibia and fibula Dictated by: Dictated on workstation # [id number]
--- NOTE | 2018-12-22 08:33 | Diagnostic Imaging Report ---
INDICATION: Fall, pain COMPARISON: Imaging from the same day and 09/01/2016 TECHNIQUE: 3 radiographs of the right foot dated 12/22/2018. FINDINGS: No acute fracture or dislocation. No destructive osseous process. Mild scattered degenerative changes, greatest involving the first MTP joint. Lisfranc joint is well aligned. No suspicious radiopaque foreign body. IMPRESSION: No acute osseous abnormality. Dictated by: Dictated on workstation # [id number]
[2018-12-22] MEDS ORDERED: fentaNYL INJECTION 100 MCG/2 ML AMP IVP ONE (09:15)
[2018-12-22 09:51] LABS: HEMATOCRIT 39 % (40-54); HEMOGLOBIN 12.5 G/DL (13.3-17.7); MEAN CORPUSCULAR HEMOGLOBIN 30 PG (25-34); WHITE BLOOD COUNT 6.2 10^3/uL (4.3-11.0)
[2018-12-22 09:52] LABS: BASOPHILS % (AUTO) 1 % (0-10); EOSINOPHILS % (AUTO) 1 % (0-10); LYMPHOCYTES # (AUTO) 2.5 X 10^3 (1.0-4.0); LYMPHOCYTES % (AUTO) 41 % (12-44); MEAN CORPUSCULAR HGB CONC 32 G/DL (32-36); MEAN CORPUSCULAR VOLUME 92 FL (80-99); MEAN PLATELET VOLUME 8.9 FL (7.4-10.4); MONOCYTES # (AUTO) 0.4 X 10^3 (0.0-1.0); MONOCYTES % (AUTO) 7 % (0-12); NEUTROPHILS # (AUTO) 3.2 X 10^3 (1.8-7.8); NEUTROPHILS % (AUTO) 51 % (42-75); PLATELET COUNT 320 10^3/uL (130-400); RED CELL DISTRIBUTION WIDTH 13.2 % (10.0-14.5)
--- NOTE | 2018-12-22 10:05 | NUR ---
Patient transferred at this time to [facility] ED via [facility]. Report given to lucas tool trouble shooter.
[2018-12-22 10:11] LABS: ALANINE AMINOTRANSFERASE 27 U/L (0-55); ALBUMIN 4.2 GM/DL (3.2-4.5); ALKALINE PHOSPHATASE 74 U/L (40-136); BILIRUBIN,TOTAL 0.7 MG/DL (0.1-1.0); BUN/CREATININE RATIO 10; CALCIUM 8.8 MG/DL (8.5-10.1); CARBON DIOXIDE 22 MMOL/L (21-32); CHLORIDE 105 MMOL/L (98-107); CREATININE SERUM 1.13 MG/DL (0.60-1.30); GFR ESTIMATED > 60; GLUCOSE 99 MG/DL (70-105); POTASSIUM 4.1 MMOL/L (3.6-5.0); SODIUM 140 MMOL/L (135-145); TOTAL PROTEIN 6.6 GM/DL (6.4-8.2)
[2018-12-22 10:14] LABS: BILIRUBIN,URINE NEGATIVE (NEGATIVE); CLARITY,URINE CLEAR; COLOR,URINE YELLOW; GLUCOSE, URINE (UA) NEGATIVE (NEGATIVE); KETONES,URINE NEGATIVE (NEGATIVE); LEUKOCYTE ESTERASE ,URINE NEGATIVE (NEGATIVE); NITRITE,URINE NEGATIVE (NEGATIVE); PROTEIN,URINE NEGATIVE (NEGATIVE); UROBILINOGEN,URINE 0.2 MG/DL (NORMAL); WBC,URINE RARE /HPF
[2018-12-22] MEDS ORDERED: LIDOCAINE 1% INJ 20 ML 20 ML VIAL ONE (10:41)
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
[2018-12-22] MEDS ORDERED: OXYC1TAB87 PO (11:09)
[2018-12-22 11:15] VITALS: BP 127/85
[2018-12-22 11:21] LABS: AMPHETAMINE SCREEN, URINE NEGATIVE (NEGATIVE); BARBITURATE SCREEN URINE NEGATIVE (NEGATIVE); BENZODIAZEPINES SCREEN URINE POSITIVE (NEGATIVE); CANNABINOID SCREEN, URINE POSITIVE (NEGATIVE); COCAINE SCREEN URINE POSITIVE (NEGATIVE); METHADONE STAT NEGATIVE (NEGATIVE); METHAMPHETAMINE SCREEN URINE S NEGATIVE (NEGATIVE); OPIATE SCREEN URINE NEGATIVE (NEGATIVE); OXYCODONE STAT POSITIVE (NEGATIVE); PROPOXYPHENE STAT NEGATIVE (NEGATIVE); TRICYCLIC ANTIDEPRESSANTS SCRE NEGATIVE (NEGATIVE)
[2018-12-22 15:07] LABS: CREATINE KINASE 249 U/L (30-200)
== END 2018-12-22 11:23 | disposition home or self-care (01) ==
LOC: EDUNIT# 07:51 → ER FS 07:53 → ER 11:23
DX: S80.11XA Contusion of right lower leg, initial encounter (principal); G47.30 Sleep apnea, unspecified; I10 Essential (primary) hypertension; G43.909 Migraine, unspecified, not intractable, without status migrainosus; G40.909 Epilepsy, unspecified, not intractable, without status epilepticus; F41.9 Anxiety disorder, unspecified; F17.210 Nicotine dependence, cigarettes, uncomplicated; Z85.07 Personal history of malignant neoplasm of pancreas; Z85.038 Personal history of other malignant neoplasm of large intestine; Z86.010 Personal history of colon polyps; Z88.6 Allergy status to analgesic agent; Z88.5 Allergy status to narcotic agent; Z87.19 Personal history of other diseases of the digestive system; W20.8XXA Other cause of strike by thrown, projected or falling object, initial encounter
CPT/HCPCS: 36415; 73590; 73610; 73630; 80053; 80306; 81000; 82550; 85025; 90715

== ENCOUNTER → 2021-06-18 | Outpatient (CLI) | payer MEDICAID, MEDICARE ==
[~2021-06-18] MED LIST changes: +CLOT15CR28 TP; -CLOT15CR5 TP; +MONT-40; -MONT10TA24; -OXYC-471 PO; +OXYC1TAB11 PO; +OXYC1TAB87 PO; -PROM118S4 PO; +PROM118S5 PO; -VERA240T14 PO; +VERA240T90 PO
[2021-06-18 13:59] LABS: BASOPHILS % (AUTO) 0 % (0-10); EOSINOPHILS % (AUTO) 0 % (0-10); HEMATOCRIT 46 % (40-54); HEMOGLOBIN 14.7 g/dL (13.3-17.7); LYMPHOCYTES # (AUTO) 2.5 10^3/uL (1.0-4.0); LYMPHOCYTES % (AUTO) 45 % (12-44); MEAN CORPUSCULAR HEMOGLOBIN 29 pg (25-34); MEAN CORPUSCULAR HGB CONC 32 g/dL (32-36); MEAN CORPUSCULAR VOLUME 92 fL (80-99); MEAN PLATELET VOLUME 8.8 fL (9.0-12.2); MONOCYTES # (AUTO) 0.4 10^3/uL (0.0-1.0); MONOCYTES % (AUTO) 6 % (0-12); NEUTROPHILS # (AUTO) 2.6 10^3/uL (1.8-7.8); NEUTROPHILS % (AUTO) 47 % (42-75); PLATELET COUNT 318 10^3/uL (130-400); WHITE BLOOD COUNT 5.5 10^3/uL (4.3-11.0)
--- NOTE | 2021-06-18 14:33 | Diagnostic Imaging Report ---
INDICATION: Cough and shortness of breath. TIME OF EXAM: 1:58 PM Correlation is made with prior chest from 07/28/2018. FINDINGS: The heart size is normal. The pulmonary vascularity is unremarkable. The lungs are clear. No infiltrate, effusion or pneumothorax is detected. IMPRESSION: No acute cardiopulmonary process is detected. Dictated by: Dictated on workstation # [id number]
== END ==
LOC: RAD 13:12
PROVIDERS: ATTEND Family Medicine
DX: R05.9 Cough, unspecified (principal); R06.02 Shortness of breath
CPT/HCPCS: 36415; 71046; 85025

== ENCOUNTER 2021-10-22 10:41 | Emergency (ER) | payer MEDICARE, OTHER ==
[~2021-10-22] VITALS: Ht 175.3 cm; Wt 72.6 kg
[2021-10-22] MEDS ORDERED: NS IV 1000 ML 1,000 ML IV STA (10:53)
[2021-10-22] MEDS ORDERED: fentaNYL INJ 100 MCG/2 ML AMP IVP STA (10:53)
[2021-10-22 11:08] LABS: CLARITY,URINE SL CLOUDY; GLUCOSE, URINE (UA) NEGATIVE (NEGATIVE); KETONES,URINE TRACE (NEGATIVE); LEUKOCYTE ESTERASE ,URINE NEGATIVE (NEGATIVE); NITRITE,URINE NEGATIVE (NEGATIVE); PROTEIN,URINE TRACE (NEGATIVE)
[2021-10-22 11:10] LABS: BASOPHILS % (AUTO) 0 % (0-10); EOSINOPHILS % (AUTO) 1 % (0-10); HEMATOCRIT 41 % (40-54); LYMPHOCYTES # (AUTO) 2.6 10^3/uL (1.0-4.0); LYMPHOCYTES % (AUTO) 47 % (12-44); MEAN CORPUSCULAR HEMOGLOBIN 30 pg (25-34); MEAN CORPUSCULAR HGB CONC 35 g/dL (32-36); MEAN CORPUSCULAR VOLUME 86 fL (80-99); MEAN PLATELET VOLUME 8.4 fL (9.0-12.2); MONOCYTES # (AUTO) 0.4 10^3/uL (0.0-1.0); MONOCYTES % (AUTO) 7 % (0-12); NEUTROPHILS # (AUTO) 2.4 10^3/uL (1.8-7.8); NEUTROPHILS % (AUTO) 44 % (42-75); PLATELET COUNT 323 10^3/uL (130-400); WHITE BLOOD COUNT 5.4 10^3/uL (4.3-11.0)
[2021-10-22] MEDS ORDERED: IOHEXOL 350 MG/ML 100 ML (OMNIPAQUE 350) VIAL IV ONE (11:15)
[2021-10-22] MEDS ORDERED: HOLD METFORMIN - RECEIVED CONTRAST 20 ML VIAL IV SCH (11:15)
[2021-10-22] MEDS ORDERED: NS 100 ML (IVPB) BAG IV ONE (11:15)
[2021-10-22] MEDS ORDERED: HYDROmorphone 2 MG/ML VIAL (DILAUDID) IV STA (11:27)
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
[2021-10-22 11:34] LABS: BACTERIA,URINE NEGATIVE /HPF; BILIRUBIN,URINE 1+ (NEGATIVE); COLOR,URINE DARK YELLOW; WBC,URINE 0-2 /HPF
[2021-10-22 11:37] LABS: AMPHETAMINE SCREEN, URINE NEGATIVE (NEGATIVE); BARBITURATE SCREEN URINE NEGATIVE (NEGATIVE); BENZODIAZEPINES SCREEN URINE NEGATIVE (NEGATIVE); CANNABINOID SCREEN, URINE POSITIVE (NEGATIVE); COCAINE SCREEN URINE POSITIVE (NEGATIVE); METHADONE STAT NEGATIVE (NEGATIVE); OPIATE SCREEN URINE NEGATIVE (NEGATIVE); OXYCODONE STAT NEGATIVE (NEGATIVE); PROPOXYPHENE STAT NEGATIVE (NEGATIVE); TRICYCLIC ANTIDEPRESSANTS SCRE NEGATIVE (NEGATIVE)
[2021-10-22 11:39] LABS: BUN/CREATININE RATIO 11; CARBON DIOXIDE 17 MMOL/L (21-32); CHLORIDE 106 MMOL/L (98-107); CREATININE SERUM 1.09 MG/DL (0.60-1.30); GFR ESTIMATED 83; GLUCOSE 96 MG/DL (70-105); POTASSIUM 4.2 MMOL/L (3.6-5.0); SODIUM 135 MMOL/L (135-145)
[2021-10-22 11:40] LABS: ALANINE AMINOTRANSFERASE 24 U/L (0-55); ALBUMIN 4.7 GM/DL (3.2-4.5); ALKALINE PHOSPHATASE 64 U/L (40-136); BILIRUBIN,TOTAL 2.2 MG/DL (0.1-1.0); CALCIUM 9.8 MG/DL (8.5-10.1); TOTAL PROTEIN 7.3 GM/DL (6.4-8.2)
--- NOTE | 2021-10-22 11:55 | Diagnostic Imaging Report ---
EXAMINATION: CT abdomen and pelvis with intravenous contrast. TECHNIQUE: Multiple contiguous axial images were obtained through the abdomen and pelvis after the uneventful administration of intravenous contrast. All CT scans use one or more of the following dose optimizing techniques: automated exposure control, MA and/or KvP adjustment based on patient size and exam type or iterative reconstruction. HISTORY: Abdominal pain COMPARISON: 11/27/2016 FINDINGS: Limited views of the lower thorax are unremarkable. The liver is normal without focal lesion. There is no biliary ductal dilation. Gallbladder is surgically absent. Pancreas is normal. Spleen is normal. Adrenal glands are normal. The kidneys are normal. There is no hydronephrosis. Urinary bladder is normal. Bowel is normal in caliber without obstruction or inflammation. There has been a right colon resection. No free fluid or air. No abdominal or pelvic lymphadenopathy. Aorta is normal in caliber without aneurysm. There are no suspicious osseus lesions. IMPRESSION: 1. No acute abnormality in the abdomen or pelvis. Dictated by: Dictated on workstation # [id number]
[2021-10-22] MEDS ORDERED: OXYC1TAB11 PO (13:01)
[2021-10-22] MEDS ORDERED: ONDA4TAB11 PO (13:01)
[2021-10-22 13:10] VITALS: BP 137/64
[2021-10-22 13:50] LABS: LIPASE 34 U/L (8-78)
== END 2021-10-22 13:10 | disposition home or self-care (01) ==
LOC: EDUNIT# 10:41 → ER FS 10:43
DX: E86.0 Dehydration (principal); R11.0 Nausea; R14.0 Abdominal distension (gaseous); G47.30 Sleep apnea, unspecified; F17.210 Nicotine dependence, cigarettes, uncomplicated; Z99.89 Dependence on other enabling machines and devices; Z85.038 Personal history of other malignant neoplasm of large intestine; Z87.19 Personal history of other diseases of the digestive system; Z90.49 Acquired absence of other specified parts of digestive tract
CPT/HCPCS: 36415; 74177; 80053; 80306; 81000; 83605; 83690; 85025; Q9967

== ENCOUNTER 2021-11-06 01:26 | Emergency (ER) | payer SELFPAY ==
[~2021-11-06] VITALS: Ht 175 cm; Wt 71.6 kg
[~2021-11-06 01:26] MED LIST changes: +ONDA4TAB11 PO
[2021-11-06] MEDS ORDERED: fentaNYL INJ 100 MCG/2 ML AMP IVP STA ×2 (01:44→02:51)
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
[2021-11-06 02:07] LABS: BASOPHILS % (AUTO) 0 % (0-10); EOSINOPHILS # (AUTO) 0.1 10^3/uL (0.0-0.3); EOSINOPHILS % (AUTO) 1 % (0-10); HEMATOCRIT 39 % (40-54); HEMOGLOBIN 13.1 g/dL (13.3-17.7); LYMPHOCYTES # (AUTO) 3.1 10^3/uL (1.0-4.0); LYMPHOCYTES % (AUTO) 45 % (12-44); MEAN CORPUSCULAR HEMOGLOBIN 30 pg (25-34); MEAN CORPUSCULAR HGB CONC 34 g/dL (32-36); MEAN CORPUSCULAR VOLUME 89 fL (80-99); MEAN PLATELET VOLUME 8.4 fL (9.0-12.2); MONOCYTES # (AUTO) 0.5 10^3/uL (0.0-1.0); MONOCYTES % (AUTO) 8 % (0-12); NEUTROPHILS # (AUTO) 3.2 10^3/uL (1.8-7.8); NEUTROPHILS % (AUTO) 46 % (42-75); PLATELET COUNT 307 10^3/uL (130-400)
[2021-11-06 02:49] LABS: CREATININE SERUM 1.05 MG/DL (0.60-1.30); POTASSIUM 3.5 MMOL/L (3.6-5.0)
[2021-11-06 02:50] LABS: ALBUMIN 4.1 GM/DL (3.2-4.5); BILIRUBIN,TOTAL 0.8 MG/DL (0.1-1.0); CALCIUM 9.2 MG/DL (8.5-10.1); TOTAL PROTEIN 6.8 GM/DL (6.4-8.2)
[2021-11-06] MEDS ORDERED: diphenhydrAMINE 50 MG/ML INJ (BENADRYL) IV STA (02:51)
[2021-11-06] MEDS ORDERED: METOCLOPRAMIDE INJ 10 MG/2 ML (REGLAN) IVP STA (02:51)
--- NOTE | 2021-11-06 04:37 | Diagnostic Imaging Report ---
Indication: Left lower quadrant abdominal pain. History of colon cancer. TECHNIQUE: Multiple contiguous axial images were obtained through the abdomen and pelvis without the use of intravenous contrast. Auto Exposure Controls were utilized during the CT exam to meet ALARA standards for radiation dose reduction. Comparison made with 10/22/2021. The visualized portions of the lung bases are clear. There were no pleural fluid collections. There is no free intraperitoneal air. The liver appears normal. Gallbladder is surgically absent. Spleen, adrenals, and pancreas are normal. Kidneys bilaterally appear normal. There is no retroperitoneal mass or adenopathy. There is no ascites. Patient's had previous right hemicolectomy. There is no pelvic lymphadenopathy or free fluid. There is no sign of bowel obstruction. IMPRESSION: No acute process in the abdomen or pelvis, stable compared to 10/22/2021. Dictated by: Dictated on workstation # [id number]
[2021-11-06 04:41] VITALS: BP 105/68
== END 2021-11-06 04:41 | disposition home or self-care (01) ==
LOC: EDUNIT# 01:26 → ER FS 01:29
DX: R10.30 Lower abdominal pain, unspecified (principal); R59.0 Localized enlarged lymph nodes; I10 Essential (primary) hypertension; G43.909 Migraine, unspecified, not intractable, without status migrainosus; G47.30 Sleep apnea, unspecified; Z99.89 Dependence on other enabling machines and devices; Z79.899 Other long term (current) drug therapy; Z85.07 Personal history of malignant neoplasm of pancreas; Z85.038 Personal history of other malignant neoplasm of large intestine; Z90.49 Acquired absence of other specified parts of digestive tract; Z20.822 Contact with and (suspected) exposure to COVID-19
CPT/HCPCS: 36415; 74176; 80053; 83605; 85025; 87430; 87636

== ENCOUNTER → 2021-11-19 | Outpatient (CLI) | payer MEDICARE ==
[2021-11-19 12:55] LABS: HEMATOCRIT 41 % (40-54); HEMOGLOBIN 13.3 g/dL (13.3-17.7); MEAN CORPUSCULAR HEMOGLOBIN 30 pg (25-34); MEAN CORPUSCULAR HGB CONC 33 g/dL (32-36); MEAN CORPUSCULAR VOLUME 92 fL (80-99); MEAN PLATELET VOLUME 8.5 fL (9.0-12.2); PLATELET COUNT 274 10^3/uL (130-400)
== END ==
LOC: LAB 12:38
PROVIDERS: ATTEND Family Medicine
DX: K92.1 Melena (principal)
CPT/HCPCS: 36415; 85027

== ENCOUNTER 2021-11-25 11:00 | Outpatient (RCR) | payer MEDICARE ==
[2021-12-04] MEDS ORDERED: ALBU8.5H9 IH (10:02)
[2021-12-04] MEDS ORDERED: ONDA4TAB11 PO (11:39)
== END 2021-12-08 | disposition home or self-care (01) ==
LOC: LAB 11:00
PROVIDERS: ATTEND Family Medicine
DX: K92.1 Melena (principal)
CPT/HCPCS: 82274

== ENCOUNTER 2021-12-04 09:18 | Outpatient (CLI) | payer MEDICARE ==
[~2021-12-04] VITALS: Ht 175.3 cm; Wt 68.5 kg
[2021-12-04] MEDS ORDERED: ALBU8.5H9 IH (10:02)
[2021-12-04] MEDS ORDERED: ONDA4TAB11 PO (11:39)
== END 2021-12-04 10:03 ==
LOC: PREOP 09:18
PROVIDERS: ATTEND Surgery
DX: Z01.818 Encounter for other preprocedural examination (principal)

== ENCOUNTER 2021-12-04 10:09 | Emergency (ER) | payer MEDICARE ==
[~2021-12-04 10:09] MED LIST changes: +ALBU8.5H9 IH
[2021-12-04] MEDS ORDERED: morphine INJ 10 MG/ML 1ML (SYR OR VIAL) IVP STA (10:31)
[2021-12-04 10:37] LABS: BASOPHILS % (AUTO) 0 % (0-10); EOSINOPHILS # (AUTO) 0.1 10^3/uL (0.0-0.3); EOSINOPHILS % (AUTO) 1 % (0-10); HEMATOCRIT 41 % (40-54); HEMOGLOBIN 13.9 g/dL (13.3-17.7); LYMPHOCYTES # (AUTO) 2.7 10^3/uL (1.0-4.0); LYMPHOCYTES % (AUTO) 39 % (12-44); MEAN CORPUSCULAR HEMOGLOBIN 30 pg (25-34); MEAN CORPUSCULAR HGB CONC 34 g/dL (32-36); MEAN CORPUSCULAR VOLUME 88 fL (80-99); MEAN PLATELET VOLUME 8.3 fL (9.0-12.2); MONOCYTES # (AUTO) 0.4 10^3/uL (0.0-1.0); MONOCYTES % (AUTO) 5 % (0-12); NEUTROPHILS # (AUTO) 3.7 10^3/uL (1.8-7.8); NEUTROPHILS % (AUTO) 54 % (42-75); PLATELET COUNT 330 10^3/uL (130-400); WHITE BLOOD COUNT 6.9 10^3/uL (4.3-11.0)
[2021-12-04] MEDS ORDERED: IOHEXOL 300 MG/ML 100 ML (OMNIPAQUE 300) VIAL IV ONE (10:45)
[2021-12-04] MEDS ORDERED: CATHETER FLUSH 10 ML SYR IV PRN (10:45)
[2021-12-04] MEDS ORDERED: HOLD METFORMIN - RECEIVED CONTRAST 20 ML VIAL IV SCH (10:45)
[2021-12-04] MEDS ORDERED: NS 100 ML (IVPB) BAG IV ONE (10:45)
[2021-12-04] MEDS ORDERED: NS IV 1000 ML 1,000 ML IV SCH (10:45)
[2021-12-04] MEDS ORDERED: ONDANSETRON 4 MG/2 ML (SDV) Z0FRAN IVP ONE (10:45)
[2021-12-04] MEDS ORDERED: FAMOTIDINE 20MG/2ML IV (PEPCID) IVP ONE (10:45)
--- NOTE | 2021-12-04 10:58 | Diagnostic Imaging Report ---
INDICATION: Shortness of breath, abdominal pain. EXAMINATION: Chest 12/04/2021. COMPARISON: 02/22/2015 FINDINGS: There is a curvilinear hyperdensity superimposed upon the medial right lung base correlate clinically. Heart and pulmonary vasculature unremarkable. Lungs and pleural spaces clear. No pneumothorax. IMPRESSION: 1. Nonspecific curvilinear foreign body along the right lower medial chest. Correlate clinically otherwise negative chest. Dictated by: Dictated on workstation # [id number]
[2021-12-04] MEDS ORDERED: HYDROmorphone 2 MG/ML VIAL (DILAUDID) IV ONE (11:00)
[2021-12-04 11:02] LABS: BUN/CREATININE RATIO 8; CALCIUM 9.6 MG/DL (8.5-10.1); CARBON DIOXIDE 21 MMOL/L (21-32); CHLORIDE 107 MMOL/L (98-107); CREATININE SERUM 1.05 MG/DL (0.60-1.30); GFR ESTIMATED 87; GLUCOSE 111 MG/DL (70-105); POTASSIUM 4.3 MMOL/L (3.6-5.0); SODIUM 140 MMOL/L (135-145)
[2021-12-04 11:03] LABS: BILIRUBIN,TOTAL 1.5 MG/DL (0.1-1.0)
[2021-12-04 11:04] LABS: ALANINE AMINOTRANSFERASE 18 U/L (0-55); ALBUMIN 4.5 GM/DL (3.2-4.5); ALKALINE PHOSPHATASE 67 U/L (40-136); TOTAL PROTEIN 7.1 GM/DL (6.4-8.2)
--- NOTE | 2021-12-04 11:07 | Diagnostic Imaging Report ---
PROCEDURE: CT abdomen and pelvis with contrast. TECHNIQUE: Multiple contiguous axial images were obtained through the abdomen and pelvis after administration of intravenous contrast. Auto Exposure Controls were utilized during the CT exam to meet ALARA standards for radiation dose reduction. All CT scans use one or more of the following dose optimizing techniques: automated exposure control, MA and/or KvP adjustment based on patient size and exam type or iterative reconstruction. INDICATION: Left lower quadrant abdominal pain. Hemoptysis. History of colon cancer. COMPARISON: None FINDINGS: Included portions lung bases are clear. CT ABDOMEN: Patient is status post previous partial right hemicolectomy. Multiple air-fluid levels are noted scattered throughout nondistended colon. Small bowel loops are also nondistended. The kidneys, adrenal glands, spleen, pancreas, and liver have a normal CT appearance. There is no loculated fluid collection, free fluid, nor free air within the abdomen. No abnormal mesenteric or retroperitoneal adenopathy is seen. Mild scattered calcified aortic and arterial atherosclerosis is present. Osseous structures show no acute abnormalities. CT pelvis: Urinary bladder is unopacified and minimally distended. There is circumferential mild urinary bladder wall thickening. Urinary bladder wall measures 9 mm in thickness. There is no loculated fluid collection, free fluid or free air within the pelvis. No abnormal adenopathy is identified. Osseous structures show no acute abnormalities. IMPRESSION: 1. Multiple air-fluid levels are noted scattered throughout the colon. Large and small bowel loops are otherwise nondistended. Findings are nonspecific and may be on the basis of underlying diarrhea/enterocolitis. 2. Circumferential thickening of the urinary bladder. This may be exaggerated by under distention. Findings may also be seen with cystitis as well as detrusor hypertrophy from chronic bladder outlet obstruction. Clinical correlation is advised. Dictated by: Dictated on workstation # [id number]
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
[2021-12-04] MEDS ORDERED: ONDA4TAB11 PO (11:39)
[2021-12-04 12:05] VITALS: BP 118/92
== END 2021-12-04 12:05 | disposition home or self-care (01) ==
LOC: EDUNIT# 10:09 → ER FS 10:10
DX: R10.32 Left lower quadrant pain (principal); Z87.19 Personal history of other diseases of the digestive system; Z85.038 Personal history of other malignant neoplasm of large intestine; Z90.49 Acquired absence of other specified parts of digestive tract; Z28.310 Unvaccinated for COVID-19
CPT/HCPCS: 36415; 71045; 74177; 80053; 83605; 84484; 85025; 93005

== ENCOUNTER 2021-12-16 10:58 | Day surgery (SDC) | payer MEDICARE ==
[~2021-12-16] VITALS: Ht 175.3 cm; Wt 69.5 kg
[2021-12-16] MEDS ORDERED: LACTATED RINGERS 1,000 ML IV ONE (11:02)
[2021-12-16] MEDS ORDERED: LACTATED RINGERS 1,000 ML IV STA (11:04)
--- NOTE | 2021-12-16 11:21 | Progress Note-Pre Operative ---
Pre-Operative Progress Note Date of Available H&P: Dec 03, 2021 Date H&P Reviewed: Dec 16, 2021 Time H&P Reviewed: 11:17 History & Physical: H&P Reviewed, Patient Examed, No changes noted, Changes noted below Pre-Operative Diagnosis: rectal bleed, hx of colon CA TRUPTI LUJAN DO Dec 16, 2021 11:21
[2021-12-16 11:30] VITALS: BP 116/82
[2021-12-16] MEDS ORDERED: PROPOFOL INJECTION 50 ML IV ONE (12:43)
[2021-12-16] MEDS ORDERED: MIDAZOLAM 2 MG/2 ML (VERSED) VIAL ONE (12:43)
--- NOTE | 2021-12-16 13:20 | Progress Note-Post Operative ---
Post-Operative Progess Note Surgeon (s)/Antenna Installer (s) Surgeon TRUPTI LUJAN DO Antenna Installer: Nano Benavides, MSIII Pre-Operative Diagnosis rectal bleed, hx of colon CA Post-Operative Diagnosis Polyp int hemorrhoids Procedure & Operative Findings Date of Procedure 12/16/21 Procedure Performed/Findings Colonoscopy with hot bx PROCEDURE NOTE: After informed consent was obtained, the patient was brought to the endoscopy suite, placed in bed in left lateral decubitus position. He was administered IV sedation by the PART MAKER who then monitored his vitals the entire time, heart rate, blood pressure and pulse ox and the scope was inserted, pushed all the way to the anastomosis and took a picture. Next slowly withdrew the scope insufflating to look circumferentially at the saldaña starting from the anastomosis (probably at transverse colon) down transverse colon to the splenic flexure, into the descending colon and down into the sigmoid. Finally into the rectal vault and retroflexed the scope. Took a picture of the internal hemorrhoids and noted a small polyp. Elected to do a hot biopsy of the polyp. When I removed the scope I did not see any anal fissure; also everted the anus and did not see fissure. The patient tolerated the procedure. He was recovered in endoscopy suite. Recommended for repeat colonoscopy in 5 years. Anesthesia Type IV sedation by PART MAKER Estimated Blood Loss Estimated blood loss (mL): scant Specimens/Packing Specimens Removed rectal polyp bx TRUPTI LUJAN DO Dec 16, 2021 13:20
[2021-12-16 13:21] VITALS: BP 106/66
--- NOTE | 2021-12-16 13:22 | Endoscopy Discharge Instruct ---
Endo Procedure/Findings Findings 1.: Polyp 2.: Internal Hemorrhoids Discharge Instructions - Activity: You might feel a little sleepy until tomorrow. This is due to the medicine you received to relax you. Until tomorrow, you should: NOT drive a car, operate machinery or power tools. NOT drink any alcoholic beverages. NOT make any important decisions or sign importortant papers. Do not return to work until tomorrow, unless otherwise instructed. Resume previous activities tomorrow. Diet: Start by taking liquids. If you tolerate liquids, advance to solid food. 1.: Colonscopy in 5 years Notify Physician - If you experience excessive bleeding, unusual abdominal pain, fever, or chest pain, contact your doctor immediately. TRUPTI LUJAN DO Dec 16, 2021 13:22
[2021-12-16 13:26] VITALS: BP 118/72
--- NOTE | 2021-12-16 13:29 | Anesthesia-General Post-Op ---
MAC Patient Condition Mental Status/LOC: Same as Preop Cardiovascular: Satisfactory Nausea/Vomiting: Absent Respiratory: Satisfactory Pain: Controlled Complications: Absent Post Op Complications Complications None Follow Up Care/Instructions Patient Instructions None needed. Anesthesiology Discharge Order Discharge Order Patient is doing well, no complaints, stable vital signs, no apparent adverse anesthesia problems. No complications reported per nursing. ZANDRA CHOWDHURY CRNA Dec 16, 2021 13:29
[2021-12-16 13:31] VITALS: BP 113/82
[2021-12-16 13:33] VITALS: BP 113/82
[2021-12-16 13:45] VITALS: BP 113/82
== END 2021-12-16 13:46 | disposition home or self-care (01) ==
LOC: ENDO 10:58
PROVIDERS: ATTEND Surgery
DX: D12.8 Benign neoplasm of rectum (principal); K64.8 Other hemorrhoids; Z85.038 Personal history of other malignant neoplasm of large intestine; Z98.0 Intestinal bypass and anastomosis status; Z90.49 Acquired absence of other specified parts of digestive tract; F17.200 Nicotine dependence, unspecified, uncomplicated
CPT/HCPCS: 88305

== ENCOUNTER → 2021-12-27 | Outpatient (CLI) | payer MEDICARE ==
[2021-12-27 13:24] LABS: BASOPHILS % (AUTO) 0 % (0-10); EOSINOPHILS % (AUTO) 0 % (0-10); HEMATOCRIT 42 % (40-54); LYMPHOCYTES # (AUTO) 1.9 10^3/uL (1.0-4.0); LYMPHOCYTES % (AUTO) 32 % (12-44); MEAN CORPUSCULAR HEMOGLOBIN 30 pg (25-34); MEAN CORPUSCULAR HGB CONC 34 g/dL (32-36); MEAN CORPUSCULAR VOLUME 89 fL (80-99); MEAN PLATELET VOLUME 8.3 fL (9.0-12.2); MONOCYTES # (AUTO) 0.3 10^3/uL (0.0-1.0); MONOCYTES % (AUTO) 5 % (0-12); NEUTROPHILS # (AUTO) 3.7 10^3/uL (1.8-7.8); NEUTROPHILS % (AUTO) 63 % (42-75); PLATELET COUNT 334 10^3/uL (130-400)
[2021-12-27 13:38] LABS: ALBUMIN 4.2 GM/DL (3.2-4.5); POTASSIUM 3.8 MMOL/L (3.6-5.0)
[2021-12-27 13:39] LABS: CALCIUM 9.2 MG/DL (8.5-10.1)
[2021-12-27 13:40] LABS: TOTAL PROTEIN 7.3 GM/DL (6.4-8.2)
[2021-12-27 13:42] LABS: BILIRUBIN,TOTAL 1.4 MG/DL (0.1-1.0)
[2021-12-27 13:44] LABS: CREATININE SERUM 0.94 MG/DL (0.60-1.30)
--- NOTE | 2021-12-27 17:42 | Diagnostic Imaging Report ---
INDICATION: Cough, congestion, weight loss. Study compared 12/04/2021. FINDINGS: Air trapping and COPD chronic. No pneumonia, failure, effusion or pneumothorax. IMPRESSION: Clear hyperexpanded lungs, otherwise negative. Dictated by: Dictated on workstation # [id number]
== END ==
LOC: RAD 12:51
PROVIDERS: ATTEND Family Medicine
DX: R05.9 Cough, unspecified (principal); R09.89 Other specified symptoms and signs involving the circulatory and respiratory systems; R63.4 Abnormal weight loss
CPT/HCPCS: 36415; 71046; 80053; 84443; 85025

== ENCOUNTER → 2022-01-07 | Outpatient (CLI) | payer MEDICARE | LOC: LAB 12:21 | PROVIDERS: ATTEND Family Medicine | DX: R63.4 Abnormal weight loss (principal); R53.83 Other fatigue | CPT/HCPCS: 36415; 87389 ==

== ENCOUNTER 2022-02-05 15:33 | Emergency (ER) | payer MEDICARE ==
[~2022-02-05] VITALS: Ht 175 cm; Wt 67.0 kg
[2022-02-05] MEDS ORDERED: ACETAMINOPHEN 500 MG TAB (TYLENOL) PO ONE (16:00)
[2022-02-05 16:05] VITALS: BP 156/84
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
== END 2022-02-05 16:15 | disposition home or self-care (01) ==
LOC: EDUNIT# 15:33 → ER FS 15:34
DX: T23.101A Burn of first degree of right hand, unspecified site, initial encounter (principal); F17.210 Nicotine dependence, cigarettes, uncomplicated; W29.3XXA Contact with powered garden and outdoor hand tools and machinery, initial encounter
CPT/HCPCS: 99283

== ENCOUNTER 2022-03-16 21:15 | Emergency (ER) | payer MEDICARE ==
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
--- NOTE | 2022-03-16 21:45 | Diagnostic Imaging Report ---
INDICATION: Left ankle pain after injury. EXAMINATION: AP, oblique and lateral views of the left ankle were obtained. FINDINGS: No acute fracture or dislocation is identified. No abnormal lytic or sclerotic focus is seen, and there is no radiopaque foreign body. IMPRESSION: No acute abnormality. Dictated by: Dictated on workstation # [id number]
[2022-03-16] MEDS ORDERED: BACITRACIN OINTMENT 28 GM TUBE TOP STA (21:50)
[2022-03-16 22:03] VITALS: BP 124/65
== END 2022-03-16 22:03 | disposition home or self-care (01) ==
LOC: EDUNIT# 21:15 → ER FS 21:18
DX: S90.02XA Contusion of left ankle, initial encounter (principal); Z28.310 Unvaccinated for COVID-19; W18.30XA Fall on same level, unspecified, initial encounter
CPT/HCPCS: 73610

== ENCOUNTER 2022-05-18 19:05 | Emergency (ER) | payer MEDICARE ==
[~2022-05-18] VITALS: Ht 175.2 cm; Wt 71.0 kg
[2022-05-18] MEDS ORDERED: fentaNYL INJ 100 MCG/2 ML AMP IVP STA (19:14)
[2022-05-18] MEDS ORDERED: NS IV 1000 ML 1,000 ML IV STA (19:14)
[2022-05-18] MEDS ORDERED: ONDANSETRON 4 MG/2 ML (SDV) Z0FRAN IVP STA (19:14)
[2022-05-18 19:19] LABS: BASOPHILS % (AUTO) 0 % (0-10); EOSINOPHILS # (AUTO) 0.3 10^3/uL (0.0-0.3); EOSINOPHILS % (AUTO) 4 % (0-10); HEMATOCRIT 38 % (40-54); LYMPHOCYTES # (AUTO) 3.4 10^3/uL (1.0-4.0); LYMPHOCYTES % (AUTO) 49 % (12-44); MEAN CORPUSCULAR HEMOGLOBIN 30 pg (25-34); MEAN CORPUSCULAR HGB CONC 34 g/dL (32-36); MEAN CORPUSCULAR VOLUME 88 fL (80-99); MEAN PLATELET VOLUME 8.4 fL (9.0-12.2); MONOCYTES # (AUTO) 0.4 10^3/uL (0.0-1.0); MONOCYTES % (AUTO) 6 % (0-12); NEUTROPHILS # (AUTO) 2.9 10^3/uL (1.8-7.8); NEUTROPHILS % (AUTO) 41 % (42-75); PLATELET COUNT 311 10^3/uL (130-400)
[2022-05-18] MEDS ORDERED: IOHEXOL 350 MG/ML 100 ML (OMNIPAQUE 350) VIAL IV ONE (19:30)
[2022-05-18] MEDS ORDERED: HOLD METFORMIN - RECEIVED CONTRAST 20 ML VIAL IV SCH (19:30)
[2022-05-18] MEDS ORDERED: NS 100 ML (IVPB) BAG IV ONE (19:30)
[2022-05-18] MEDS ORDERED: CATHETER FLUSH 10 ML SYR IV PRN (19:30)
[2022-05-18 19:32] LABS: INR 0.9 (0.8-1.4); PROTHROMBIN TIME PATIENT 12.6 SEC (12.2-14.7)
[2022-05-18 19:40] LABS: ALANINE AMINOTRANSFERASE 15 U/L (0-55); ALBUMIN 4.1 GM/DL (3.2-4.5); ALKALINE PHOSPHATASE 68 U/L (40-136); BILIRUBIN,TOTAL 0.9 MG/DL (0.1-1.0); BUN/CREATININE RATIO 10; CALCIUM 9.3 MG/DL (8.5-10.1); CARBON DIOXIDE 21 MMOL/L (21-32); CHLORIDE 102 MMOL/L (98-107); CREATININE SERUM 1.35 MG/DL (0.60-1.30); GFR ESTIMATED 64; GLUCOSE 98 MG/DL (70-105); LIPASE 44 U/L (8-78); POTASSIUM 3.9 MMOL/L (3.6-5.0); SODIUM 138 MMOL/L (135-145); TOTAL PROTEIN 6.6 GM/DL (6.4-8.2)
[2022-05-18 19:48] LABS: BILIRUBIN,URINE NEGATIVE (NEGATIVE); CLARITY,URINE CLEAR; COLOR,URINE YELLOW; GLUCOSE, URINE (UA) NEGATIVE (NEGATIVE); KETONES,URINE TRACE (NEGATIVE); LEUKOCYTE ESTERASE ,URINE NEGATIVE (NEGATIVE); NITRITE,URINE NEGATIVE (NEGATIVE); PROTEIN,URINE NEGATIVE (NEGATIVE)
[2022-05-18 19:51] LABS: BACTERIA,URINE TRACE /HPF
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
[2022-05-18 19:58] LABS: AMPHETAMINE SCREEN, URINE NEGATIVE (NEGATIVE); BARBITURATE SCREEN URINE NEGATIVE (NEGATIVE); BENZODIAZEPINES SCREEN URINE NEGATIVE (NEGATIVE); CANNABINOID SCREEN, URINE POSITIVE (NEGATIVE); COCAINE SCREEN URINE POSITIVE (NEGATIVE); METHADONE STAT NEGATIVE (NEGATIVE); OPIATE SCREEN URINE NEGATIVE (NEGATIVE); OXYCODONE STAT NEGATIVE (NEGATIVE); PROPOXYPHENE STAT NEGATIVE (NEGATIVE); TRICYCLIC ANTIDEPRESSANTS SCRE NEGATIVE (NEGATIVE)
--- NOTE | 2022-05-18 20:26 | Diagnostic Imaging Report ---
PROCEDURE: CT abdomen and pelvis with contrast. TECHNIQUE: Multiple contiguous axial images were obtained through the abdomen and pelvis after administration of intravenous contrast. Auto Exposure Controls were utilized during the CT exam to meet ALARA standards for radiation dose reduction. All CT scans use one or more of the following dose optimizing techniques: automated exposure control, MA and/or KvP adjustment based on patient size and exam type or iterative reconstruction. DATE: May 18, 2022. COMPARISON: CT abdomen and pelvis December 04, 2021. INDICATION: 51-year-old male, abdominal pain, bloody stools. History of colon cancer. FINDINGS: The visualized portions of the lung bases are clear. The heart is not enlarged. There is no identified pericardial effusion. The liver is unremarkable in size and contour. There is no identified liver lesion. The main, right and left portal veins are patent. The gallbladder is surgically absent. There is no identified intrahepatic or extrahepatic bile duct dilation. The main pancreatic duct is not abnormally dilated. Unremarkable appearance of the pancreatic parenchyma. The spleen is normal in size. The adrenal glands are unremarkable. There is a 4 mm low-attenuation left renal lesion on axial image 76 which is too small to characterize. The urinary collecting systems are not distended. There is no identified renal or ureteral stone. There is diffuse urinary bladder wall thickening which may relate to underdistention, cystitis and/or chronic outlet obstruction. There are findings of partial right colectomy. There is mild distention of the stomach with debris. The additional segments of the intestinal tract are not distended. There is no identified free intraperitoneal air. There is no identified drainable fluid collection. There is no free fluid in the abdomen or pelvis. There are atherosclerotic calcifications. There is no identified abnormally enlarged lymph node in the abdomen or pelvis meeting CT size criteria for adenopathy. There is no identified aggressive bone lesion or acute bony abnormality. IMPRESSION: CT abdomen and pelvis: 1. Status post right partial colectomy. 2. No identified acute abnormality in the abdomen or pelvis. Dictated by: Dictated on workstation # [id number]
[2022-05-18] MEDS ORDERED: PANTOPRAZOLE 40 MG (PROTONIX) VIAL IV STA (20:51)
[2022-05-18] MEDS ORDERED: OXYC1TAB11 PO (20:55)
[2022-05-18] MEDS ORDERED: PANT40TA52 PO (20:55)
[2022-05-18] MEDS ORDERED: RX-OXYCODONE/APAP 5-325 MG #4 TAB PK PO PRN (21:00)
[2022-05-18 21:04] VITALS: BP 119/75
== END 2022-05-18 21:04 | disposition home or self-care (01) ==
LOC: EDUNIT# 19:05 → ER FS 19:09
DX: K29.71 Gastritis, unspecified, with bleeding (principal); E86.0 Dehydration; F12.90 Cannabis use, unspecified, uncomplicated; F17.210 Nicotine dependence, cigarettes, uncomplicated; R74.02 Elevation of levels of lactic acid dehydrogenase [LDH]; Z88.5 Allergy status to narcotic agent; Z88.6 Allergy status to analgesic agent; Z85.038 Personal history of other malignant neoplasm of large intestine; Z90.49 Acquired absence of other specified parts of digestive tract
CPT/HCPCS: 36415; 74177; 80053; 80306; 81000; 82274; 83605; 83690; 85025; 85610; 85730; 87088; 99284; G0480; 80320